=== PATIENT | male | born 1960 | race Caucasian/White ===

== ENCOUNTER 2019-08-26 14:08 | Outpatient (CLI) | payer BC, SELFPAY ==
--- NOTE | ~2019-08-26 | XR_ITS ---
EXAMINATION: XR hip RT 2V w AP pelvis DATE: 08/26/2019 14:35 INDICATION: Right hip pain TECHNIQUE: Anteroposterior view of the pelvis and anteroposterior, frog leg and cross-table lateral v iews of the right hip were obtained. Additional AP and lateral views of the more distal right femur o btained to completely include the orthopedic instrumentation. COMPARISON: None. FINDINGS: Old healed mid diaphyseal fracture of the right femur with antegrade intramedullary abdifatah fixation whic h is in essentially anatomic alignment. Transverse interlocking screw at the level of the lesser troc hanter. No lucency surrounding the fixation instrumentation to suggest loosening or infection. No acu te fracture. L4 laminectomy and combined instrumented anterior and posterior spinal fusion at L3-L4 a nd L4-L5 spanned by bilateral vertical rods and pedicle screw fixations as well as interbody fusion d evices at both levels. Bilateral hip osteoarthritis, moderate on the right and mild on the left. No r ight knee joint effusion. Multiple phleboliths in the pelvis. IMPRESSION: 1. Old healed internally fixed mid diaphyseal fracture of the right femur which is in near-anatomic a lignment. 2. Bilateral hip osteoarthritis, moderate on the right and mild on the left. 3. Minor instrumented anterior and posterior spinal fusion at L3-L5. Reviewed, dictated and finalized at location A. GHT CALLER IMPRESSION: 1. Old healed internally fixed mid diaphyseal fracture of the right femur which is in near-anatomic alignment. 2. Bilateral hip osteoarthritis, moderate on the right and mild on the left. 3. Minor instrumented anterior and posterior spinal fusion at L3-L5.
== END 2019-08-26 14:09 | disposition home or self-care (01) ==
LOC: ANHIMG 14:12
PROVIDERS: PCP Family Medicine; Visit Provider Physician Assistant Medical
DX: M25.551 Pain in right hip (principal); Z87.81 Personal history of (healed) traumatic fracture; M16.0 Bilateral primary osteoarthritis of hip; Z98.1 Arthrodesis status
CPT/HCPCS: 73521

== ENCOUNTER 2020-03-01 18:23 | Emergency (ER) | payer BC, SELFPAY ==
--- NOTE | ~2020-03-01 | CT_ITS ---
EXAMINATION: CT brain wo con EXAM DATE: 03/01/2020 19:12 INDICATION: Fall, possible seizure. Left eye pain and swelling. TECHNIQUE: Spiral CT of the head was performed without contrast. Axial, coronal and sagittal images were reviewed. The dose-length product (DLP) for this examination was 605.33 mGy-cm. The exposure w as tailored according to patient size, and iterative reconstruction (ASIR) was used as additional dos e reduction technique. There is no prior study for comparison. FINDINGS: Left inferior orbital wall fractures with large amount of intraconal and extraconal left or bital gas, left-sided exophthalmus. Left periorbital swelling. Please correlate with CT facial bone e xam same date. No pneumocephalus or calvarial fracture. There is no acute intraparenchymal hemorrhage. No evidence of intraparenchymal brain mass lesion. N o evidence of acute infarction. Mild atrophy and microangiopathy. There is no mass effect or midline shift. The ventricles are normal in size. There are no extra-axial collections. The orbits are unr emarkable. Soft tissue is unremarkable. The visualized sinuses and mastoid air cells are well aerat ed. IMPRESSION: 1. No acute intracranial findings. 2. Left infraorbital fractures, intraorbital gas causing exophthalmus. Reviewed, dictated and finalized at location A.
--- NOTE | ~2020-03-01 | XR_ITS ---
EXAMINATION: XR chest 2V EXAM DATE: 03/01/2020 19:18 INDICATION: Syncope. Left orbital fractures. TECHNIQUE: Frontal and lateral projections of the chest obtained and reviewed. Comparison is made to prior examination from 08/02/2011. FINDINGS: The lungs are clear. There are no pleural effusions. Cardiac silhouette is prominent but magnified on this AP technique. There is no pneumothorax suspected. The bones and soft tissues are unremarkable. IMPRESSION: No acute cardiopulmonary findings. Reviewed, dictated and finalized at location A.
--- NOTE | ~2020-03-01 | CT_ITS ---
EXAMINATION: CT facial & cervical spine wo EXAM DATE: 03/01/2020 19:12 INDICATION: Left eye pain. Fall. TECHNIQUE: Spiral CT of the facial bones was acquired in the axial plane. Coronal reformatted images were also reviewed. Spiral CT of the cervical spine was performed without contrast. Axial images we re reviewed. Coronal and sagittal reformatted images were also reviewed. The dose-length product (DL P) for this examination was 518.69 mGy-cm. The exposure was tailored according to patient size, and iterative reconstruction (ASIR) was used as additional dose reduction technique. There is no prior s tudy for comparison. FINDINGS: FACIAL CT: There are acute comminuted mildly inferiorly displaced left infraorbital wall fractures. A cute left medial orbital wall fracture with minimal medial displacement. There is large amount of gas within both intraconal and extraconal spaces of the left orbit, contributing to severe exophthalmus. The globe itself appears intact. The inferior rectus maintains intraorbital course. There is severe left periorbital swelling. There is hemorrhage filling the left maxillary sinus and also some hemorrh age in the ethmoid sinuses. Also acute nondisplaced left maxillary sinus posterior wall fracture with small amount of gas posteri or to the wall. The mastoid air cells are well aerated. There is mild mucoperiosteal disease. Nasal b ones, septum, zygomatic arches and mandible appear intact. CERVICAL CT: There is no evidence of acute cervical fracture. The odontoid process is intact. Pre-d ens space is normal. Prevertebral soft tissue is normal. There are no soft tissue abnormalities tigist ntified. There is no disc space widening or traumatic vertebral body subluxation suspected. There i s moderate disc disease at C6-7, overall mild to moderate cervical arthropathy. Up to moderate mid ce rvical neural foraminal stenosis. IMPRESSION: 1. Acute left orbital inferior orbital wall comminution, mild displacement. 2. Acute minimally displaced left lamina papyracea fracture. 3. Acute nondisplaced left maxillary sinus posterior wall fracture. 4. Large amount of left orbital pneumocephalus with severe exophthalmos. Periorbital swelling. 5. Cervical spondylosis without fracture. Reviewed, dictated and finalized at location A. IMPRESSION: 1. Acute left orbital inferior orbital wall comminution, mild displacement. 2. Acute minimally displaced left lamina papyracea fracture. 3. Acute nondisplaced left maxillary sinus posterior wall fracture. 4. Large amount of left orbital pneumocephalus with severe exophthalmos. Perio rbital swelling. 5. Cervical spondylosis without fracture.
[2020-03-01 18:30] VITALS: BP 143/90; PULSE 65; RESP 16; TEMP 37.2; O2SAT 98
--- NOTE | 2020-03-01 18:42 | ECG_ITS ---
Measurements Intervals [place] Rate: 58 P: 55 WV: 178 QRS: 28 QRSD: 133 T: 140 QT: 437 QTc: 432 Interpretive Statements SINUS BRADYCARDIA POSSIBLE LEFT ATRIAL ENLARGEMENT INTRAVENTRICULAR CONDUCTION DELAY CANNOT RULE OUT SEPTAL INFARCT, AGE INDETERMINATE ST-T WAVE ABNORMALITY IN HIGH LATERAL LEADS- CONSIDER ISCHEMIA ABNORMAL ECG Electronically Signed On 03-01-2020 20:21:11 CDT by Evangelist Padilla D.O.
--- NOTE | 2020-03-01 19:05 | ECG_ITS ---
Measurements Intervals [place] Rate: 60 P: 47 WI: 183 QRS: 21 QRSD: 126 T: 140 QT: 442 QTc: 442 Interpretive Statements SINUS RHYTHM POSSIBLE LEFT ATRIAL ENLARGEMENT LEFT VENTRICULAR HYPERTROPHY AND ST-T CHANGE CANNOT RULE OUT SEPTAL INFARCT, AGE INDETERMINATE ST-T WAVE ABNORMALITY IN HIGH LATERAL LEADS- CONSIDER ISCHEMIA ABNORMAL ECG Electronically Signed On 03-01-2020 20:22:50 CDT by Evangelist Padilla D.O.
[2020-03-01 19:06] LABS: Basophils Absolute Auto 0.1 K/mm3 (0.0-0.1); Basophils Percent Auto 1.1 % (0.2-1.2); Eosinophils Absolute Auto 0.3 K/mm3 (0-0.3); Eosinophils Percent Auto 3.3 % (0-4.4); Hemoglobin 13.8 g/dL (14.0-18.0); Immature Granulocyte Absolute 0.03 K/mm3 (0.00-0.031); Immature Granulocyte Percent A 0.3 % (0-0.5); Lymphocytes Absolute Auto 2.47 K/mm3 (0.9-3.2); Lymphocytes Percent Auto 24.9 % (18.3-44.2); Mean Corpuscular HGB Conc 34.5 g/dl (32-36); Mean Corpuscular Hemoglobin 36.3 pg (26-34); Mean Corpuscular Volume 105.3 fl (80-100); Mean Platelet Volume 10.9 fl (7.4-10.4); Monocytes Percent Auto 9.6 % (2.6-8.5); Neutrophils Percent Auto 60.8 % (45.5-73.1); Platelet Count Result 198 k/mm3 (150-375); Red Cell Distribution Width 12.4 % (11.5-14.5); White Blood Count 9.9 K/mm3 (4.5-10.0)
[2020-03-01 19:15] LABS: Prothrombin Time 12.5 Seconds (11.1-14.7)
[2020-03-01 19:22] LABS: Alanine Aminotransferase 49 U/L (4-50); Albumin Level 4.1 g/dL (3.5-5.1); Alkaline Phosphatase 66 U/L (38-126); Aspartate Amino Transferase 74 U/L (17-59); Bilirubin,Total 0.5 mg/dL (0.2-1.3); Blood Urea Nitrogen 13 mg/dL (9-20); Calcium 8.8 mg/dL (8.4-10.2); Carbon Dioxide 27 mmol/L (22-30); Chloride 100 mmol/L (98-107); Estimated CRCL calculation 104 ml/min; Estimated Glomerular Filt Rate > 60; Glucose 97 mg/dL (75-110); Potassium 3.9 mmol/L (3.4-5.0); Sodium 133 mmol/L (137-145)
[2020-03-01 19:33] LABS: Troponin I 0.026 ng/mL (0.000-0.034)
--- NOTE | 2020-03-01 19:37 | ED.FALL ---
HPI - Fall General Chief Complaint: Fall <TARA Singer Last Filed: 03/01/20 20:06> Stated Complaint: fall, possible seizure <TARA Singer Last Filed: 03/01/20 20:06> Time Seen by Provider: 03/01/20 18:29 <TARA Singer Last Filed: 03/01/20 20:06> Source: patient <TARA Singer Last Filed: 03/01/20 20:06> Mode of arrival: ambulatory <TARA Singer Last Filed: 03/01/20 20:06> Limitations: no limitations <TARA Singer Last Filed: 03/01/20 20:06> History of Present Illness HPI Narrative: This is a 60-year-old male that presents the emergency department for facial trauma. Reports he had been drinking beer today. Reports he felt like it went down the wrong pipe . Reports he had a coughing spell and then passed out. Reports he awoke to a friend finding him outside. Reports since he has had pain and swelling in the left eye. Also reports blurry vision in the left eye. Denies other injuries, chest pain, palpitations, shortness of breath, vomiting, weakness, or numbness. <TARA Singer Last Filed: 03/01/20 20:06> Related Data Home Medications: Home Medications Medication Instructions Recorded Confirmed Daily Multivitamin 03/01/20 aspirin [Adult Low Dose Aspirin] 81 mg PO DAILY 03/01/20 atorvastatin 03/01/20 carvedilol 03/01/20 citalopram mg 03/01/20 lisinopril 03/01/20 valacyclovir 03/01/20 <TARA Singer Last Filed: 03/01/20 20:06> Allergies/Adverse Reactions: Allergies Allergy/AdvReac Type Severity Reaction Status Date / Time amoxicillin Allergy Unknown Unknown Verified 03/01/20 19:22 lactose Allergy Unknown Unknown Verified 03/01/20 19:22 <TARA Singer Last Filed: 03/01/20 20:06> Review of Systems Review of Systems: Narrative: CONSTITUTIONAL: Denies fever EYES: Reports visual changes and redness CARDIOVASCULAR: Denies chest pain RESPIRATORY: Denies dyspnea. GASTROINTESTINAL: Denies vomiting MUSCULOSKELETAL: Denies back pain, joint pain, or myalgia. NEUROLOGIC: Denies headache, numbness, or weakness. <Brittany De La Cruz PA-C - Last Filed: 03/01/20 20:06> All systems reviewed & are unremarkable except as noted in HPI and below <Brittany De La Cruz PA-C - Last Filed: 03/01/20 20:06> [facility] Past Medical History Medical History: Medical History (Updated 03/01/20 @ 19:54 by Brittany De La Cruz PA-C) Alcohol use disorder Anxiety disorder, unspecified Bone spur (~2001) Chronic bilateral low back pain without sciatica Essential (primary) hypertension Fracture, femur (~1994) Hypertrophic cardiomyopathy Mixed hyperlipidemia Primary osteoarthritis of right hip <Brittany De La Cruz PA-C - Last Filed: 03/01/20 20:06> Surgical History Surgical History: Surgical History (Updated 11/09/19 @ 16:17 by Perla Pacheco) History of hernia repair (~2013) History of lumbar fusion (~2017) History of shoulder surgery (~2014) <Brittany De La Cruz PA-C - Last Filed: 03/01/20 20:06> Social History Social History: Social History Smoking status: Never smoker Alcohol intake: current <Brittany De La Cruz PA-C - Last Filed: 03/01/20 20:06> Exam Narrative: Exam Narrative: GENERAL: Well-appearing, well-nourished, and in no acute distress. HEAD: Normocephalic. EYES: Left pupil unreactive to light. Left eye with trouble with lateral gaze. Right pupil round and reactive to light with EOMs intact. Left eye 20/30, Right 20/25. Left eye with diffuse conjunctival injection. Left eyelids ecchymotic and swollen with left eye exophthalmos ENT: Nares clear, no rhinorrhea or epistaxis. Mucous membranes moist. Oropharynx without tonsillar hypertrophy exudate or other lesions. Bilateral TMs pearly patrick non-bulging NECK: Supple. No adenopathy or masses. No midline cervical spine tenderness CHEST: Clear to auscultat
--- NOTE | 2020-03-01 20:03 | PC.NURSE ---
1952 Called [facility] to transport patient. ETA 2100 1957 Callled [facility] to transport patient. declined - no ALS truck for transfers tonight. 1958 Called [facility] to transport patient. not available until 3-4 hours. 2000 Called [facility] to transport patient. declined - no trucks available.
[2020-03-01] MEDS: MORPHINE SULFATE 4 MG/ML INJ IV PUSH (20:08)
[2020-03-01] MEDS: ONDANSETRON INJ 4 MG/2 ML VIAL IV PUSH (20:08)
[2020-03-01 20:18] VITALS: BP 131/94; PULSE 65; RESP 20; O2SAT 94
[2020-03-01 20:28] LABS: Ethanol 113 mg/dL (<10)
--- NOTE | 2020-03-01 21:21 | PC.NURSE ---
2101 Called [facility] for update ETA. ETA 7 min. 2118 Called [facility] for update ETA. ETA 5 min.
[2020-03-01 21:29] VITALS: BP 125/79; PULSE 74; RESP 18; O2SAT 95
== END 2020-03-01 21:31 | disposition short-term general hospital (02) ==
PROVIDERS: Physician Assistant; Emergency Provider Emergency Medicine; PCP Family Medicine
DX: S02.32XA Fracture of orbital floor, left side, initial encounter for closed fracture (principal); S02.40DA Maxillary fracture, left side, initial encounter for closed fracture; S02.832A Fracture of medial orbital wall, left side, initial encounter for closed fracture; R55 Syncope and collapse; F41.9 Anxiety disorder, unspecified; I10 Essential (primary) hypertension; E78.2 Mixed hyperlipidemia; M16.11 Unilateral primary osteoarthritis, right hip; Z98.1 Arthrodesis status; W18.39XA Other fall on same level, initial encounter; M47.812 Spondylosis without myelopathy or radiculopathy, cervical region; I51.7 Cardiomegaly; R94.31 Abnormal electrocardiogram [ECG] [EKG]; R00.1 Bradycardia, unspecified
CPT/HCPCS: 36415; 70450; 70486; 71046; 72125; 80053; 80307; 84484; 85025; 85610; 85730; 93005; 96365; 96375; 99285; J0131; J2270; J2405

== ENCOUNTER 2021-12-25 00:49 | Day surgery (SDC) | payer BC, SELFPAY ==
[2021-12-15 11:56] VITALS: BMI 30.4
--- NOTE | 2021-12-25 10:30 | WPDANESEPPF ---
Anes - Initial Pre Proc Eval Procedure: Operation Date: 12/25/21 13:00 Proposed Procedures p Screening Colonoscopy - Darin Sanders MD Date/Time: 12/25/21 10:30 Surgeon: Darin Sanders MD Pre Op Diagnosis: neoplasm screening Patient Data Age: 61 Gender: M Height: 1.8 m Weight: 99 kg Allergies Allergy/AdvReac Type Severity Reaction Status Date / Time amoxicillin Allergy Unknown Unknown Verified 12/25/21 11:42 lactose Allergy Unknown Unknown Verified 12/25/21 11:42 Home Medications Medication Instructions Recorded Confirmed Type Daily Multivitamin See Rx Instructions .ROUTE .COMPLEX 03/01/20 12/15/21 History aspirin [Adult Low Dose Aspirin] 81 mg PO DAILY 03/01/20 12/15/21 History lisinopril 5 mg PO DAILY 03/01/20 12/15/21 History metoprolol succinate 50 mg 50 mg PO DAILY 06/03/20 12/15/21 History tablet,extended release 24 hr cyanocobalamin (vitamin B-12) 500 500 mcg PO DAILY 11/12/20 12/15/21 History mcg lozenges valacyclovir 500 mg tablet See Rx Instructions .ROUTE 11/23/21 12/15/21 Rx .COMPLEX #90 tablet atorvastatin 40 mg tablet 40 mg PO DAILY #90 tablet 11/25/21 12/15/21 Rx citalopram 40 mg tablet 40 mg PO DAILY #90 tablet 11/25/21 12/15/21 Rx Patient hx anesthesia problems: none Family hx anesthesia problems: none Results Review: All pre-operative results and documents have been reviewed as part of the pre-operative evaluation. [facility] Past Medical History Medical History (Updated 12/25/21 @ 10:34 by Warren Coronado MD) Alcohol use disorder Anxiety Anxiety disorder, unspecified BMI 30.0-30.9,adult Bone spur (~2001) Chronic bilateral low back pain without sciatica Essential (primary) hypertension Fracture, femur (~1994) Hip replacement planned Hx of myocardial infarction Hypertension Hypertrophic cardiomyopathy Mixed hyperlipidemia MARCIE on CPAP Primary osteoarthritis of right hip Surgical History Surgical History (Updated 12/25/21 @ 10:34 by Warren Coronado MD) History of hernia repair (~2013) History of lumbar fusion (~2017) History of shoulder surgery (~2014) S/P triple vessel bypass Family History Family History Father Mother No problems noted. Sibling Heart disease Other Family history of cardiovascular disease Social History Social History Smoking packs per day: 0.5 Smoking cigarettes per day: 10.0 Smoking status: Current every day smoker Tobacco type: cigarettes Second hand tobacco smoke exposure: No Alcohol intake: current Drinks per week: 43 Alcohol use details: beer Substance use: current Substance use type: former substance user Other substance usage details: indica Last use: daily Living arrangements: with family Additional occupation/education comments: GM Gender identity (if verbalized by the patient): Male Spiritual care concerns: No Anes - Eval Final PreProcedure Day of Procedure 12/25/21 10:30 Patient weight: obese Heart: regular rate and rhythm Lungs: clear to auscultation and normal air movement Airway: Mallampati scale class II Neurological: alert and oriented Last oral intake: >/= 8 hours ASA classification: IV Emergent: no Anesthetic plan: proceed Anesthesia type and monitoring: general GIVS Results Review: All pre-operative results and documents have been reviewed as part of the pre-operative evaluation. Informed Consent: The patient's anesthetic plan and its attendant risks and benefits were discussed with the patient/family/POA. Questions were solicited and answers provided to the satisfaction of the patient/family/POA.
[2021-12-25 11:43] VITALS: BP 127/74; PULSE 104; RESP 20; TEMP 36.1; O2SAT 95
--- NOTE | 2021-12-25 11:47 | WPDGICN ---
Assessment and Plan Assessment and plan (1) Colon cancer screening: Code(s): Z12.11 - Encounter for screening for malignant neoplasm of colon Status: Acute Assessment and Plan: Colonoscopy with possible biopsy or polypectomy or cautery or injection of substances. (2) MARCIE on CPAP: Code(s): G47.33 - Obstructive sleep apnea (adult) (pediatric); Z99.89 - Dependence on other enabling machines and devices Status: Acute Assessment and Plan: Anesthesia is aware GI Consult Note Consult date/time: 12/25/21 11:47 HPI: Charles Rose is a 61 year old male Referred for colon cancer screening. His last colonoscopy was 12 years ago. He denies any change in bowel habits or blood in his stools. He does not have any family history of colon cancer. Review of Systems Review of Systems: All systems reviewed & are unremarkable except as noted in HPI and below PMFSH Past Medical History Medical History Alcohol use disorder Anxiety Anxiety disorder, unspecified BMI 30.0-30.9,adult Bone spur (~2001) Chronic bilateral low back pain without sciatica Essential (primary) hypertension Fracture, femur (~1994) Hip replacement planned Hx of myocardial infarction Hypertension Hypertrophic cardiomyopathy Mixed hyperlipidemia MARCIE on CPAP Primary osteoarthritis of right hip Surgical History Surgical History History of hernia repair (~2013) History of lumbar fusion (~2017) History of shoulder surgery (~2014) S/P triple vessel bypass Family History Family History Father Mother No problems noted. Sibling Heart disease Other Family history of cardiovascular disease Social History Social History Smoking packs per day: 0.5 Smoking cigarettes per day: 10.0 Smoking status: Current every day smoker Tobacco type: cigarettes Second hand tobacco smoke exposure: No Alcohol intake: current Drinks per week: 43 Alcohol use details: beer Substance use: current Substance use type: former substance user Other substance usage details: indica Last use: daily Living arrangements: with family Additional occupation/education comments: GM Gender identity (if verbalized by the patient): Male Spiritual care concerns: No Meds Home Medications and Allergies Home Medications Medication Instructions Recorded Confirmed Type Daily Multivitamin See Rx Instructions .ROUTE .COMPLEX 03/01/20 12/15/21 History aspirin [Adult Low Dose Aspirin] 81 mg PO DAILY 03/01/20 12/15/21 History lisinopril 5 mg PO DAILY 03/01/20 12/15/21 History metoprolol succinate 50 mg 50 mg PO DAILY 06/03/20 12/15/21 History tablet,extended release 24 hr cyanocobalamin (vitamin B-12) 500 500 mcg PO DAILY 11/12/20 12/15/21 History mcg lozenges valacyclovir 500 mg tablet See Rx Instructions .ROUTE 11/23/21 12/15/21 Rx .COMPLEX #90 tablet atorvastatin 40 mg tablet 40 mg PO DAILY #90 tablet 11/25/21 12/15/21 Rx citalopram 40 mg tablet 40 mg PO DAILY #90 tablet 11/25/21 12/15/21 Rx Allergies Allergy/AdvReac Type Severity Reaction Status Date / Time amoxicillin Allergy Unknown Unknown Verified 12/25/21 11:42 lactose Allergy Unknown Unknown Verified 12/25/21 11:42 Vital Signs Vital Signs - 24 hr 12/25/21 11:43 Temperature 36.1 C L Pulse Rate 104 H Respiratory Rate 20 Blood Pressure 127/74 Pulse Oximetry 95 Exam Const: General: alert Nutritional Appearance: overweight Orientation/consciousness: patient oriented x3 Resp: Auscultation: clear to auscultation bilaterally Cardio: Rhythm: regular rhythm GI: GI Palp: Yes Soft to palpation and No Tenderness to palpation present (GI) Neuro: General: patient oriented x3
[2021-12-25] MEDS: LACTATED RINGERS 1,000 ML 150 ML IV CONT (11:56)
--- NOTE | 2021-12-25 12:08 | SUR.OPER ---
Vancomycin antibiotics infusing via pump prior to procedure start.
[2021-12-25 12:19] VITALS: BP 114/78; PULSE 84; RESP 23; O2SAT 94
[2021-12-25 12:29] VITALS: BP 122/79; PULSE 77; RESP 15; O2SAT 97
[2021-12-25 12:39] VITALS: BP 130/85; PULSE 76; RESP 16; O2SAT 97
[2021-12-25 12:49] VITALS: BP 136/86; PULSE 70; RESP 18; O2SAT 98
== END 2021-12-25 13:40 | disposition home or self-care (01) ==
PROVIDERS: PCP Family Medicine; Visit Provider Internal Medicine Gastroenterology
PROC: 0DJD8ZZ Inspection of Lower Intestinal Tract, Via Natural or Artificial Opening Endoscopic (ICD-10-PCS; CPT 45378; principal; 2021-12-25 13:00)
DX: Z12.11 Encounter for screening for malignant neoplasm of colon (principal); K64.8 Other hemorrhoids; K57.30 Diverticulosis of large intestine without perforation or abscess without bleeding; G47.33 Obstructive sleep apnea (adult) (pediatric); I10 Essential (primary) hypertension; I25.2 Old myocardial infarction; I42.2 Other hypertrophic cardiomyopathy; E78.2 Mixed hyperlipidemia; F41.9 Anxiety disorder, unspecified; Z98.1 Arthrodesis status; Z95.1 Presence of aortocoronary bypass graft; F17.210 Nicotine dependence, cigarettes, uncomplicated; F12.90 Cannabis use, unspecified, uncomplicated; Z79.82 Long term (current) use of aspirin; E66.9 Obesity, unspecified; Z68.29 Body mass index [BMI] 29.0-29.9, adult
CPT/HCPCS: 45378; J2704; J3370; J7120

== ENCOUNTER 2022-01-29 07:26 | Emergency (ER) | payer BC, SELFPAY ==
--- NOTE | ~2022-01-29 | XR_ITS ---
EXAMINATION: XR wrist LT min 3V DATE: 01/29/2022 08:12 INDICATION: Left wrist pain, initial encounter TECHNIQUE: Three views of the left wrist were obtained. COMPARISON: None available FINDINGS: There is an acute, traumatic, closed, comminuted intra-articular fracture of the distal rad ius. There are 30 degrees of dorsal angulation at the fracture site. Soft tissue swelling surrounds t he fracture. No additional fracture is identified. IMPRESSION: 1. Comminuted intra-articular fracture of the distal radius with dorsal angulation. Reviewed, dictated and finalized at location A. IMPRESSION: 1. Comminuted intra-articular fracture of the distal radius with dorsal angulat ion.
--- NOTE | ~2022-01-29 | XR_ITS ---
EXAMINATION: XR shoulder LT min 2V INDICATION: Left shoulder pain TECHNIQUE: Four views of the left shoulder are submitted. COMPARISON: None FINDINGS: Normal alignment. No fracture. Glenohumeral and acromioclavicular joint spaces are normal. Soft tissues are unremarkable. There are partially imaged changes of coronary artery bypass grafting. IMPRESSION: 1. No acute osseous abnormality. Reviewed, dictated and finalized at location A.
--- NOTE | ~2022-01-29 | CT_ITS ---
EXAMINATION: CT brain wo con INDICATION: Head injury COMPARISON: 03/01/2020 TECHNIQUE: Standard unenhanced head CT. The dose-length product (DLP) was 908.00 mGy-cm. The mA was a djusted according to patient size. Iterative reconstruction technique was employed. FINDINGS: There is no intracranial hemorrhage, acute infarction, or abnormal mass lesion. The ventric les are normal. There is no abnormal mass effect or midline shift. The patrick-white matter differentiat ion is normal. The basal cisterns are patent. The orbits are normal. There is mild mucosal thickening of the paranasal sinuses. IMPRESSION: 1. No acute intracranial abnormality. Reviewed, dictated and finalized at location A.
[2022-01-29 07:34] VITALS: BP 120/68; PULSE 74; RESP 16; TEMP 35.9; O2SAT 95
--- NOTE | 2022-01-29 07:43 | ED.GENADULT ---
HPI - General Adult General Chief complaint: Extremity Injury, Upper Stated complaint: left wrist injury Time Seen by Provider: 01/29/22 07:34 Source: patient Mode of arrival: ambulatory Limitations: no limitations History of Present Illness HPI narrative: 61-year-old male presenting the emergency department for evaluation of left wrist pain and left shoulder pain after having a fall last night. Patient states he lost his balance after opening a door and was holding a pair of shoes. Instead of grabbing the banister he ended up falling and injured his left shoulder and left wrist. Patient states he did strike his head, denies any head injury, denies any loss of consciousness. Patient states he is not on any blood thinners. Patient states immediately after the injury he was able to soak the left wrist and had normal range of motion. Patient states when he woke up this morning he had increased swelling and tenderness of left wrist. Patient does have increased pain with active range of motion of the left shoulder. Patient does have prior history of right hip arthroplasty performed at [place]. Related Data Home Medications Medication Instructions Recorded Confirmed Daily Multivitamin See Rx Instructions .ROUTE .COMPLEX 03/01/20 12/15/21 aspirin [Adult Low Dose Aspirin] 81 mg PO DAILY 03/01/20 12/15/21 lisinopril 5 mg PO DAILY 03/01/20 12/15/21 metoprolol succinate 50 mg 50 mg PO DAILY 06/03/20 12/15/21 tablet,extended release 24 hr cyanocobalamin (vitamin B-12) 500 500 mcg PO DAILY 11/12/20 12/15/21 mcg lozenges Allergies Allergy/AdvReac Type Severity Reaction Status Date / Time amoxicillin Allergy Unknown Unknown Verified 12/25/21 11:42 lactose Allergy Unknown Unknown Verified 12/25/21 11:42 Review of Systems Review of Systems: CONSTITUTIONAL: Denies fever, chills, or sweats. EYES: Denies visual changes, redness, or discharge. ENT: Denies rhinorrhea, congestion, sore throat, or otalgia. CARDIOVASCULAR: Denies chest pain, palpitations, or edema. RESPIRATORY: Denies cough or dyspnea. GASTROINTESTINAL: Denies abdominal pain, nausea, vomiting, or diarrhea. GENITOURINARY: Denies dysuria or hematuria. SKIN: Denies rash or itching. MUSCULOSKELETAL: See HPI NEUROLOGIC: Denies headache, numbness, or weakness. [facility] Past Medical History Medical History Alcohol use disorder Anxiety Anxiety disorder, unspecified BMI 30.0-30.9,adult Bone spur (~2001) Chronic bilateral low back pain without sciatica Essential (primary) hypertension Fracture, femur (~1994) Hip replacement planned Hx of myocardial infarction Hypertension Hypertrophic cardiomyopathy Mixed hyperlipidemia MARCIE on CPAP Primary osteoarthritis of right hip Surgical History Surgical History History of hernia repair (~2013) History of lumbar fusion (~2017) History of shoulder surgery (~2014) S/P triple vessel bypass Family History Family History Father Mother No problems noted. Sibling Heart disease Other Family history of cardiovascular disease Social History Social History Smoking packs per day: 0.5 Smoking cigarettes per day: 10.0 Smoking status: Current every day smoker Tobacco type: cigarettes Second hand tobacco smoke exposure: No Alcohol intake: current Drinks per week: 43 Alcohol use details: beer Substance use: current Substance use type: former substance user Other substance usage details: indica Last use: daily Additional occupation/education comments: GM Gender identity (if verbalized by the patient): Male Spiritual care concerns: No Exam Narrative: APPEARANCE: Well appearing, no pain, no distress, well-nourished. HEAD: normocephalic, atraumatic. EYES: PERRLA/EOMI, co
--- NOTE | 2022-01-29 07:59 | PC.NURSE ---
Patient to radiology
[2022-01-29] MEDS: HYDROcodone/acetaminophen (*CRX) 5-325 MG TABLET 1 TAB PO (09:45)
== END 2022-01-29 10:16 | disposition home or self-care (01) ==
PROVIDERS: Emergency Provider Emergency Medicine; PCP Family Medicine
DX: S52.572A Other intraarticular fracture of lower end of left radius, initial encounter for closed fracture (principal); S49.92XA Unspecified injury of left shoulder and upper arm, initial encounter; S09.90XA Unspecified injury of head, initial encounter; I10 Essential (primary) hypertension; I25.2 Old myocardial infarction; I42.2 Other hypertrophic cardiomyopathy; E78.2 Mixed hyperlipidemia; G47.33 Obstructive sleep apnea (adult) (pediatric); M16.11 Unilateral primary osteoarthritis, right hip; Z96.641 Presence of right artificial hip joint; Z79.82 Long term (current) use of aspirin; Z98.1 Arthrodesis status; F17.210 Nicotine dependence, cigarettes, uncomplicated; W18.39XA Other fall on same level, initial encounter
CPT/HCPCS: 29125; 70450; 73030; 73110; 99284; A4565; A9270

== ENCOUNTER 2022-02-03 00:57 | Day surgery (SDC) | payer BC, SELFPAY ==
--- NOTE | 2022-02-02 13:54 | PC.NURSE ---
Report to the Outpatient Waiting Room, entrance under the green pavilion located off [facility], at time _1200_ on date _02-03-22_. OR Time: __1400_. - You and your visitor will be asked a series of questions to screen for COVID 19 for your protection. - Only one visitor is allowed at this time. - The patient visitor is requested to leave or wait in car when not with patient. - A mask is required within the hospital. Patients may have clear liquids (water, carbonated beverages, clear teas, apple juice) until 3 hours prior to surgery with a maximum of 20 ounces. - No food from midnight until time of surgery Take the following medications with a SIP of water the morning of surgery: __Metoprolol, Citalopram, and Valacyclovir Medications to discontinue per physician Date to take last dose Please no make-up, nail [place], hairspray, perfume, deodorant, or body powder the day of surgery. No jewelry (including any body piercings) or valuables the day of surgery, leave them at home. Please take a shower or bath the night before, or the morning of, surgery with an antibacterial soap. Wear comfortable, loose fitting clothing. Children are encouraged to wear pajamas. - Jewelry must be removed prior to entering the operating room. Rings and piercings that are not removed may be cut off. - The hospital will not accept responsibility for valuables. - Please leave all valuables, including medications, at home the day of surgery. If you are going home after surgery, a licensed peg driver must drive you home. - NO public transportation without another adult. - We recommend that an adult stay with you for 24 hours following discharge. - We also recommend that you do not drive, make important decision, drink alcoholic beverages, or take any drugs that were not prescribed by your health care provider for at least 24 hours after your discharge time. Follow any additional instructions given to you from your surgeon. If you or anyone in your household have experienced Covid symptoms in the past week, please notify your surgeon or the nurse liaison at the phone number below for possible testing. Telephone instructions given to Patient and asked if any additional questions and then verbalized understanding. Patient advised to call surgeon office or pre surgery nurse liaison [phone] if any additional questions.
[2022-02-03] VITALS (9 sets, daily range): BP systolic 132–144; BP diastolic 83–89; PULSE 62–72; RESP 12–20; TEMP 36.4–36.5; O2SAT 93–98
--- NOTE | ~2022-02-03 | XR_ITS ---
EXAMINATION: XR surgery orthopedic DATE: 02/03/2022 14:21 INDICATION: ORIF left wrist fracture TECHNIQUE: 3 fluoroscopic images of the left wrist were obtained during procedure performed by Dr. Ferny can. Radiologist was not present for the imaging or procedure. The amount of fluoroscopy time used during this procedure was 10.8 minutes. COMPARISON: 02/11/2022 FINDINGS: Interval likely closed reduction of a comminuted intra-articular fracture of the distal left radius w hich is now fixed with 3 percutaneous fixation pins. There is approximately 10 degrees residual dorsa l tilt of the distal articular surface. The fracture is intra-articular with fracture planes extendin g to the ulnar and dorsal peripheral margins of the articular surface. There is approximately 2 to 3 mm residual lucent fracture gap between a small fragment along the dorsal rim and the remainder of th e articular surface which appears intact. No other fractures identified. Mild osteoarthritis at the t riscaphe joint. Surgical clip in the radial sided soft tissues at the wrist. IMPRESSION: 1. Decrease in the degree of dorsal tilt of the distal articular surface post closed reduction percut aneous pin fixation of a comminuted intra-articular fracture of the distal left radius. Reviewed, dictated and finalized at location A. IMPRESSION: 1. Decrease in the degree of dorsal tilt of the distal articular surface post c losed reduction percutaneous pin fixation of a comminuted intra-articular fract ure of the distal left radius.
--- NOTE | 2022-02-03 07:19 | WPDHPUPDATE1 ---
History and Physical Update Update Date/Time: 02/03/22 07:19 History and Physical has been reviewed, including an updated exam of the patient. There are NO changes in the patient's condition. Risks, benefits, and alternatives have been discussed and questions answered. Patient agrees to proceed with procedure.
--- NOTE | 2022-02-03 11:47 | ECG_ITS ---
Measurements Intervals [place] Rate: 66 P: 52 ND: 177 QRS: 55 QRSD: 141 T: 109 QT: 419 QTc: 441 Interpretive Statements SINUS RHYTHM LEFT BUNDLE BRANCH BLOCK ABNORMAL ECG Electronically Signed On 02-03-2022 12:46:51 CDT by Evangelist Padilla D.O.
[2022-02-03] MEDS: LACTATED RINGERS 1,000 ML 30 ML IV CONT (12:32)
[2022-02-03] MEDS: ACETAMINOPHEN 500 MG TABLET 1000 MG PO (12:33)
[2022-02-03] MEDS: KETOROLAC 15 MG/ML VIAL (*BKC) IV PUSH (12:34)
--- NOTE | 2022-02-03 12:39 | SUR.PREOP ---
INSTRUCTED BY Rola KRAFT TO LEAVE ARM SPLINT IN PLACE. NO HAIR REMOVAL OR SCRUB DONE.
--- NOTE | 2022-02-03 12:39 | WPDANESEPPF ---
Anes - Initial Pre Proc Eval Procedure: Operation Date: 02/03/22 14:00 Proposed Procedures p Open Reduction Internal Fixation Left Distal Radius - Cheng Johnson MD Date/Time: 02/03/22 12:39 Surgeon: Cheng Johnson MD Pre Op Diagnosis: Lt Distal Radius Fx Patient Data Age: 61 Gender: M Height: 1.8 m Weight: 97.7 kg Allergies Allergy/AdvReac Type Severity Reaction Status Date / Time lactose Allergy Mild Diarrhea Verified 02/03/22 12:22 amoxicillin AdvReac Mild Nausea Verified 02/03/22 12:22 Home Medications Medication Instructions Recorded Confirmed Type Daily Multivitamin See Rx Instructions .ROUTE .COMPLEX 03/01/20 02/03/22 History aspirin [Adult Low Dose Aspirin] 81 mg PO DAILY 03/01/20 02/03/22 History metoprolol succinate 50 mg 50 mg PO DAILY 06/03/20 02/03/22 History tablet,extended release 24 hr cyanocobalamin (vitamin B-12) 500 500 mcg PO DAILY 11/12/20 02/03/22 History mcg lozenges valacyclovir 500 mg tablet See Rx Instructions .ROUTE 11/23/21 02/03/22 Rx .COMPLEX #90 tablet citalopram 40 mg tablet 40 mg PO DAILY #90 tablet 11/25/21 02/03/22 Rx hydrocodone-acetaminophen 1 tablet PO Q8H PRN #14 tablet 01/30/22 02/03/22 Rx atorvastatin 40 mg PO HS 02/02/22 02/03/22 History ferrous sulfate 324 mg PO HS 02/02/22 02/03/22 History Patient hx anesthesia problems: none Family hx anesthesia problems: none Results Review: All pre-operative results and documents have been reviewed as part of the pre-operative evaluation. [facility] Past Medical History Medical History Alcohol use disorder Anxiety Anxiety disorder, unspecified BMI 30.0-30.9,adult Bone spur (~2001) Chronic bilateral low back pain without sciatica Essential (primary) hypertension Fracture, femur (~1994) Hip replacement planned Hx of myocardial infarction Hypertension Hypertrophic cardiomyopathy Mixed hyperlipidemia MARCIE on CPAP Primary osteoarthritis of right hip Surgical History Surgical History History of hernia repair (~2013) History of lumbar fusion (~2017) History of shoulder surgery (~2014) S/P triple vessel bypass Family History Family History Father Mother No problems noted. Sibling Heart disease Other Family history of cardiovascular disease Social History Social History Smoking packs per day: 1 Smoking cigarettes per day: 20.0 Years smoked: 25 Smoking pack-years: 25.00 Smoking status: Current every day smoker Tobacco type: cigarettes Second hand tobacco smoke exposure: No Alcohol intake: current Drinks per week: 45 Alcohol use details: beer Substance use: current Substance use type: marijuana Other substance usage details: Medical marijuana for back and hip pain. Uses daily about 4pm. Last use: daily Living arrangements: with family Additional occupation/education comments: GM Gender identity (if verbalized by the patient): Male Spiritual care concerns: No Anes - Eval Final PreProcedure Day of Procedure 02/03/22 12:39 Patient weight: obese Heart: regular rate and rhythm Lungs: clear to auscultation Airway: Mallampati scale class II Neurological: alert and oriented Last oral intake: >/= 8 hours ASA classification: IV Emergent: no Anesthetic plan: proceed Anesthesia type and monitoring: general LMA and standard monitoring Results Review: All pre-operative results and documents have been reviewed as part of the pre-operative evaluation. Informed Consent: The patient's anesthetic plan and its attendant risks and benefits were discussed with the patient/family/POA. Questions were solicited and answers provided to the satisfaction of the patient/family/POA.
[2022-02-03] MEDS: ceFAZolin 2 GM/D5W 50 ML 2 GM/50 ML BAG IVPB (13:06)
[2022-02-03] MEDS: BUPIVACAINE HCL 0.5% PF 30 ML VIAL INFILTRATE (13:54)
--- NOTE | 2022-02-03 14:56 | W.PM.PROC2 ---
Procedure Note - Detailed Date of Procedure 02/03/22 Pre-op Diagnosis Lt Distal Radius Fx Post-op Diagnosis Same Surgeon Cheng Johnson MD Anesthesia General Estimated Blood Loss 2 Pathology None sent Complications No immediate complications Condition Stable Disposition PACU
--- NOTE | 2022-02-03 15:00 | W.PM.PROC2 ---
Procedure Note - Detailed Date of Procedure 02/03/22 Pre-op Diagnosis Lt Distal Radius Fx Post-op Diagnosis Same Procedure Performed CLOSED REDUCTION PERCUTANEOUS PINNING LEFT DISTAL RADIUS FRACTURE Surgeon Cheng Johnson MD Anesthesia General Description of Procedure THE PATIENT WAS TAKEN TO THE OPERATING ROOM IN STABLE CONDITION, THEN GENERAL ANESTHESIA WAS INDUCED. THE LEFT UPPER EXTREMITY WAS EXAMINED. THERE WAS MASSIVE AMOUNTS OF SWELLING AND ECCHYMOSIS OVER THE VOLAR WRIST. IT WAS DECIDED THEN TO PREFORM A CLOSED REDUCTION AND PERCUTANEOUS PINNING OF THE FRACTURE. THE LEFT UPPER EXTREMITY WAS PREPPED AND DRAPED IN A STERILE FASHION. USING FIBROSCOPY, THE LEFT DISTAL RADIUS FRACTURE WAS REDUCED TO ANATOMIC POSITION. NEXT, THREE 0.62K WIRES WERE THEN PLACED BRIDGING THE FRACTURE FRAGMENTS. THE WRIST WAS TAKEN THROUGH A RANGE OF MOTION AND USING C-ARM XRAY, THE FRACTURE WAS IN GOOD REDUCTION AND STABLE THROUGH RANGE OF MOTION. THE PINS WERE CUT AT THE LEVEL OF THE SKIN. A STERILE DRESSING WAS PLACED, A SUGAR TONG SPLINT WAS PLACED AFTER THAT. THE PATIENT WAS SENT TO RECOVERY ROOM IN STABLE CONDITION. Estimated Blood Loss 2.0 Packing No Pathology None sent Complications No immediate complications Condition Stable Disposition PACU
[2022-02-03] MEDS: fentaNYL CITRATE INJ (*CRX) 100 MCG/2 ML VIAL 25 MCG IV PUSH ×4 (15:02→15:08)
[2022-02-03] MEDS: oxyCODONE HCL (*CRX) 5 MG TAB IR PO (15:52)
== END 2022-02-03 16:32 | disposition home or self-care (01) ==
PROVIDERS: PCP Family Medicine; Visit Provider Orthopaedic Surgery
PROC: (CPT 25575; principal; 2022-02-03 14:00)
DX: S52.572A Other intraarticular fracture of lower end of left radius, initial encounter for closed fracture (principal); W19.XXXA Unspecified fall, initial encounter; I10 Essential (primary) hypertension; E78.2 Mixed hyperlipidemia; I25.2 Old myocardial infarction; G47.33 Obstructive sleep apnea (adult) (pediatric); F41.9 Anxiety disorder, unspecified; I42.2 Other hypertrophic cardiomyopathy; Z98.1 Arthrodesis status; Z95.1 Presence of aortocoronary bypass graft; F17.210 Nicotine dependence, cigarettes, uncomplicated; F12.90 Cannabis use, unspecified, uncomplicated; M16.11 Unilateral primary osteoarthritis, right hip; M54.42 Lumbago with sciatica, left side; M54.41 Lumbago with sciatica, right side; G89.29 Other chronic pain; E66.9 Obesity, unspecified; Z68.29 Body mass index [BMI] 29.0-29.9, adult
CPT/HCPCS: 25606; 93005; A4565; A9270; C1713; J0690; J1100; J1885; J2250; J2405; J2704; J3010; J7120

== ENCOUNTER 2023-01-28 13:09 | Outpatient (CLI) | payer MEDICARE, SELFPAY ==
--- NOTE | ~2023-01-28 | CT_ITS ---
EXAMINATION:CT lung screening DATE: 01/28/2023 13:34 INDICATION: Tobacco use. Current smoker with 50 pack year history. TECHNIQUE: Computed tomography (CT) of the chest was performed without intravenous contrast. Automate d exposure control and iterative reconstruction technique were employed. The dose-length product (DLP ) was 200.14 mGy-cm. COMPARISON: None. FINDINGS: The lungs demonstrate mild atelectasis. No pleural effusion. The heart size is normal. Ther e are coronary artery calcifications. There are changes of coronary bypass grafting. There is diffuse hepatic steatosis. There are gallstones in the gallbladder, which is contracted. There is severe tho racic spondylosis. There are hemangiomas in T5 and T9 vertebral bodies. IMPRESSION: 1. Lung-RADS category 1: Negative. Continue annual screening with noncontrast low-dose chest CT in 12 months. Reviewed, dictated and finalized at location A. IMPRESSION: 1. Lung-RADS category 1: Negative. Continue annual screening with noncontrast l ow-dose chest CT in 12 months.
--- NOTE | 2023-01-28 16:18 | WPDPFTINT ---
PFT Procedure Performed PFT Procedure Performed Spirometry with Pre/Post Bronchodilator Plethysmography (Lung Vol) Diffusing Cap (DLCO) Flow Vol Loop PFT Interpretation This is a pulmonary function test with pre and post-bronchodilator spirometry, plethysmography and diffusing capacity. The test was performed and results interpreted in accordance with the 2019 and 2005 ATS/ERS Task Force guidelines respectively using the Global Lung Function Initiative-2012 reference equations. Patient demonstrated good effort and cooperation. Reproducibility criteria were met. The quality of the pre bronchodilator spirometry maneuver was Grade A and post bronchodilator spirometry maneuver was Grade A. Findings: Spirometry: The contour the inspiratory and expiratory flow tracing are normal. The pre bronchodilator FVC is 4.43 L, 94% predicted. The pre bronchodilator FEV1 is 3.15 L, 87% predicted. The pre bronchodilator FEV1: FVC ratio 71%. The post bronchodilator FVC is 4.26 L, representing a 4% decrease. The post bronchodilator FEV1 is 3.26 L, representing a 4% increase. The post bronchodilator FEV1: FVC ratio is 76%. Plethysmography: The total lung capacity is 7.01 L, 98% predicted. The functional residual capacity is 3.68 L, 98% predicted. The residual volume is 2.58 L, 111% predicted. Diffusing capacity: The diffusing capacity unadjusted for hemoglobin and carboxyhemoglobin is 20.2, 71% predicted. The diffusing capacity adjusted for alveolar volume is 3.53, 86% predicted. Impression: The spirometry is normal without evidence of an obstructive abnormality. There is no significant improvement after inhaling a single dose of albuterol. The lung volumes are normal. The diffusing capacity unadjusted for hemoglobin and carboxyhemoglobin is mildly decreased and normalizes when adjusted for alveolar volume. There are no prior studies for comparison
== END 2023-01-28 13:10 | disposition home or self-care (01) ==
PROVIDERS: PCP Family Medicine; Visit Provider Physician Assistant Medical
DX: Z12.2 Encounter for screening for malignant neoplasm of respiratory organs (principal); F17.210 Nicotine dependence, cigarettes, uncomplicated
CPT/HCPCS: 71271; 94060; 94726; 94729

== ENCOUNTER 2024-06-05 08:47 | Outpatient (CLI) | payer MEDICARE, SELFPAY ==
--- NOTE | ~2024-06-05 | CT_ITS ---
EXAMINATION:CT lung screening DATE: 06/05/2024 09:00 INDICATION: Personal history of nicotine dependence. 50 pack year history. TECHNIQUE: Computed tomography (CT) of the chest was performed without intravenous contrast. Automate d exposure control and iterative reconstruction technique were employed. The dose-length product (DLP ) was 192.42 mGy-cm. COMPARISON: Chest CT 01/28/2023 FINDINGS: There is mild atelectasis in left upper lobe. No pleural effusion. The heart size is normal . There are coronary artery calcifications. There are changes of coronary artery bypass grafting. No pericardial effusion. There is diffuse hepatic steatosis. There are gallstones in the gallbladder, wh ich is contracted. There is severe thoracic spondylosis. There are hemangiomas in T5 and T9 vertebral bodies. IMPRESSION: 1. Lung-RADS category 1: Negative. Continue annual screening with noncontrast low-dose chest CT in 12 months. Reviewed, dictated and finalized at location A. IMPRESSION: 1. Lung-RADS category 1: Negative. Continue annual screening with noncontrast l ow-dose chest CT in 12 months.
== END 2024-06-05 08:48 | disposition home or self-care (01) ==
LOC: GOSHIMG 08:48
PROVIDERS: PCP Family Medicine; Visit Provider Nurse Practitioner Family
DX: Z12.2 Encounter for screening for malignant neoplasm of respiratory organs (principal); Z87.891 Personal history of nicotine dependence
CPT/HCPCS: 71271

== ENCOUNTER 2024-07-30 10:02 | Outpatient (CLI) | payer MEDICARE, SELFPAY ==
--- NOTE | ~2024-07-30 | US_ITS ---
EXAMINATION: US arterial ankle brachial ind DATE: 07/30/2024 10:49 INDICATION: Peripheral vascular disease. TECHNIQUE: Segmental pressures and plethysmographic and Doppler waveforms of the brachial and lower e xtremity arteries were obtained. COMPARISON: None. FINDINGS: Right and left brachial artery pressures of 148 mm Hg and 136 mm Hg, respectively, are concordant (no rmal difference <= 30 mmHg). The right ankle-brachial index (PATSY) is 1.21 (normal >= 0.9-1.0). The right great toe-brachial index (TBI) is 0.69 (normal >= 0.65). Arterial Doppler waveforms are triphasic in posterior tibial artery a nd monophasic in dorsalis pedis. The left PATSY is 1.30. The left TBI is 0.70. Arterial Doppler waveforms are biphasic at the ankle. IMPRESSION: 1. No significant arterial occlusive disease. Reviewed, dictated and finalized at location A. [employer]
== END 2024-07-30 10:03 | disposition home or self-care (01) ==
PROVIDERS: PCP Family Medicine; Visit Provider Nurse Practitioner Family
DX: I73.9 Peripheral vascular disease, unspecified (principal)
CPT/HCPCS: 93922

== ENCOUNTER 2024-12-05 11:23 | Emergency (ER) | payer MEDICARE, SELFPAY ==
[2024-12-05] VITALS (12 sets, daily range): BP systolic 149–185; BP diastolic 80–93; PULSE 47–51; RESP 11–20; TEMP 36.6; O2SAT 95–98
--- NOTE | ~2024-12-05 | CT_ITS ---
EXAMINATION: CT abdomen pelvis w con DATE: 12/05/2024 13:15 INDICATION: Rectal bleeding. TECHNIQUE: Computed tomography (CT) of the abdomen and pelvis was performed with 100 mL Omnipaque 350 intravenous contrast. Automated exposure control and iterative reconstruction technique were employe d. The dose-length product was 965.22 mGy-cm. COMPARISON: Chest CT 06/05/2024 FINDINGS: The visualized portions of lung bases demonstrate mild atelectasis. No pleural effusion. Ca rdiomegaly is noted. No pericardial effusion. There is diffuse hepatic steatosis. There are gallstone s in the gallbladder, which is normal in size. The spleen, pancreas, adrenal glands, and right kidney are normal. There is a 5 mm cyst in left kidney. There is diverticulosis of the colon without eviden ce of diverticulitis. The appendix is normal. There are no dilated loops of bowel. There are no patho logically enlarged lymph nodes. There is no free intraperitoneal fluid. There is a total right hip ar throplasty. There are changes of anterior and posterior fusion procedures from L3 to L5. There is sev ere thoracic spondylosis and moderate lumbar spondylosis. IMPRESSION: 1. Diffuse hepatic steatosis. Reviewed, dictated and finalized at location B.
--- NOTE | 2024-12-05 11:43 | PC.NURSE ---
pt states he has a few normal poops and the third or forth one is explosive and sometimes dark and tarry and sometimes just brown
[2024-12-05 12:05] LABS: Basophils Absolute Auto 0.1 K/mm3 (0.0-0.1); Basophils Percent Auto 1.1 % (0.2-1.2); Eosinophils Absolute Auto 0.4 K/mm3 (0-0.3); Eosinophils Percent Auto 4.7 % (0-4.4); Hematocrit 40.8 % (42.0-52.0); Hemoglobin 13.9 g/dL (14.0-18.0); Immature Granulocyte Absolute 0.01 K/mm3 (0.00-0.031); Immature Granulocyte Percent A 0.1 % (0-0.5); Lymphocytes Absolute Auto 1.73 K/mm3 (0.9-3.2); Lymphocytes Percent Auto 22.8 % (18.3-44.2); Mean Corpuscular HGB Conc 34.1 g/dl (32-36); Mean Corpuscular Hemoglobin 35.5 pg (26-34); Mean Corpuscular Volume 104.3 fl (80-100); Mean Platelet Volume 10.7 fl (7.4-10.4); Monocytes Absolute Auto 0.6 K/mm3 (0.1-0.6); Monocytes Percent Auto 8.2 % (2.6-8.5); Neutrophils Absolute Auto 4.8 K/mm3 (1.3-6.7); Neutrophils Percent Auto 63.1 % (45.5-73.1); Platelet Count Result 172 k/mm3 (150-375); Red Blood Count 3.91 M/mm3 (4.6-6.20); Red Cell Distribution Width 12.6 % (11.5-14.5); White Blood Count 7.6 K/mm3 (4.5-10.0)
[2024-12-05 12:14] LABS: Prothrombin Time 13.6 Seconds (11.1-14.7)
[2024-12-05 12:15] LABS: Partial Thromboplastin Time 25.4 Seconds (22.3-36.8)
[2024-12-05 12:18] LABS: Alanine Aminotransferase 70 U/L (6-50); Albumin Level 4.4 g/dL (3.5-5.1); Alkaline Phosphatase 69 U/L (38-126); Anion Gap 10 mmol/L (4-12); Aspartate Amino Transferase 52 U/L (17-59); Bilirubin,Total 0.6 mg/dL (0.2-1.3); Blood Urea Nitrogen 16 mg/dL (9-20); Calcium 9.5 mg/dL (8.4-10.2); Carbon Dioxide 26 mmol/L (22-30); Chloride 106 mmol/L (98-107); Estimated CRCL calculation 87 ml/min; Estimated Glomerular Filt Rate > 60; Glucose 104 mg/dL (65-110); Lipase 43 U/L (23-300); Potassium 4.1 mmol/L (3.4-5.0); Sodium 142 mmol/L (137-145)
--- NOTE | 2024-12-05 12:57 | ED.ABDPAIN ---
HPI - Abdominal Pain General Chief Complaint: Abdominal Pain Stated Complaint: suspected gall bladder complications Time Seen by Provider: 12/05/24 12:02 History of Present Illness HPI narrative: 64-year-old male with a past medical history including triple bypass, hypertension, alcohol abuse with 8 beers per day. He has a history of diverticulosis and internal hemorrhoids on recent colonoscopy in 2021. Patient presents to the emergency department for evaluation of potential rectal bleeding. He has had various qualities to his stool including dark tarry stool, bright red stool, normal stool. Denies any consistency to his bowel movements. Denies any abdominal pain in lower region, no rectal pain or external hemorrhoids to his knowledge. He went to his primary care provider today for routine visit and was referred to the ED for evaluation. at bedside states that the GP was concerned about insurance issues and referrals and wants to get all the studies done at once in the ED. Patient himself is not any acute distress, states that he feels tired, does take iron supplements. Related Data Home Medications ?Medication ?Instructions ?Recorded ?Confirmed ?Last Taken ?Type aspirin 81 mg tablet,delayed 81 mg PO DAILY 03/01/20 12/05/24 Unknown History release (Adult Low Dose Aspirin) metoprolol succinate 50 mg 50 mg PO DAILY 06/03/20 12/05/24 Unknown History tablet,extended release 24 hr cyanocobalamin (vitamin B-12) 500 500 mcg PO DAILY 11/12/20 12/05/24 Unknown History mcg lozenges ferrous sulfate 324 mg (65 mg 324 mg PO HS 02/02/22 12/05/24 Unknown History iron) tablet,delayed release nizhwldh-lyy-exwny acid 0.4 1 tablet PO DAILY 01/05/23 12/05/24 Unknown History mg-lycopene 300 mcg-lutein 250 mcg tablet (Centrum Silver) rosuvastatin 40 mg tablet (Crestor) 40 mg PO DAILY 01/09/24 12/05/24 Unknown History fexofenadine 60 mg tablet (Chuyita 60 mg PO Q12H 05/24/24 12/05/24 Unknown History Allergy) Allergies Allergy/AdvReac Type Severity Reaction Status Date / Time lactose Allergy Mild Diarrhea Verified 12/05/24 11:25 amoxicillin AdvReac Mild Nausea Verified 12/05/24 11:25 Review of Systems Review of Systems: As reviewed above in HPI PMFSH Past Medical History Medical History Alcohol use disorder Low volume of ejaculated semen Otitis externa MARCIE on CPAP Hx of myocardial infarction Hypertension Hip replacement planned BMI 30.0-30.9,adult Hypokalemia Bone spur (~2001) Hypertrophic cardiomyopathy Primary osteoarthritis of right hip Anxiety disorder, unspecified Chronic bilateral low back pain without sciatica Essential (primary) hypertension Mixed hyperlipidemia Surgical History Surgical History Hx of elbow surgery Christian Bedolla- 2016 S/P triple vessel bypass History of lumbar fusion (~2017) History of shoulder surgery (~2014) History of hernia repair (~2013) Family History Family History Father Mother No problems noted. Sibling Heart disease Other Family history of cardiovascular disease Social History Social History Smoking packs per day: 1 Smoking cigarettes per day: 20.0 Years smoked: 25 Smoking pack-years: 25.00 Smoking status: Former smoker Tobacco type: cigarettes Second hand tobacco smoke exposure: No Alcohol intake: current Drinks per week: 45 Alcohol use details: beer Substance use: current Substance use type: marijuana Other substance usage details: Medical marijuana for back and hip pain. Uses daily about 4pm. 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 Mucous membranes moist. NECK: Supple. CHEST: [Clear to auscultation. No respiratory distress.] HEART: [Regular rate and rhythm]. No murmur heard. [Normal peripheral pulses.] ABDOMEN: Protuberant abdomen but nondistended, soft to palpation, [nontender], [No rigidity or guarding] RECTAL: No external hemorrhoids, no pain with digital rectal examination, no obvious internal hernias, no palpable deformity. Guaiac-positive stool. No right red blood per rectum EXTREMITIES: Normal range of motion. [No edema.] SKIN: Warm, dry, no rash. NEURO: [No focal deficits]. Alert and oriented [x3.] PSYCH: [Normal mood and affect.] Course Vital Signs Vital signs: Vital Signs Temperature 36.6 C 12/05/24 11:25 Pulse Rate 51 L 12/05/24 11:25 Respiratory Rate 14 12/05/24 11:25 Blood Pressure 152/80 H 12/05/24 11:25 Pulse Oximetry 97 12/05/24 11:25 Oxygen Delivery Room Air 12/05/24 11:25 Temperature 36.6 C 12/05/24 11:25 Pulse Rate 49 L 12/05/24 11:49 Respiratory Rate 18 12/05/24 11:49 Blood Pressure 149/83 H 12/05/24 11:49 Pulse Oximetry 95 12/05/24 11:49 Oxygen Delivery Room Air 12/05/24 11:25 MDM - Abdominal Pain MDM Narrative Medical decision making narrative: 64-year-old male with a past medical history including coronary disease, hypertension, alcohol abuse with 8 drinks per day. He has a history of diverticulosis and internal hemorrhoids, recent colonoscopy in 2021 showed diverticulosis, internal hemorrhoids, polyp but no cancers lesions according to the family. Patient self is not any acute distress and went to his primary care provider today and referred to the emergency department for evaluation. Patient otherwise appears well, has no tenderness on examination, overall benign exam, vital signs with some sinus bradycardia, no blood pressure concerns, no fever, hypoxia or tachypnea. Considerations presently are for diverticulosis bleed, diverticulitis, internal hemorrhoids, less likely active GI bleed given his hemodynamic stability and overall well appearance. No present suspicion for upper abdominal pathology or brisk upper GI bleed. Blood was obtained including CBC, CMP, PT, PTT, type and screen. A CT scan of the abdomen pelvis with contrast was obtained. EKG ordered. Patient was placed on criminal psychologist and pulse oximetry and frequent re-evaluated. Workup shows no leukocytosis, hemoglobin of 13.9 which is around his baseline and macrocytic likely combination of iron deficiency that he takes iron supplements for and his alcohol use. Normal platelet count. Normal coagulation panel. Normal electrolytes, normal renal and unremarkable hepatic function panel. Normal lipase. Urine with high specific gravity but no infection. Occult blood test positive. CT scan shows hepatic steatosis but no acute process or active bleed. Patient re-evaluated without any symptoms. I informed them findings and unremarkable workup here and recommendations for outpatient GI follow-up. Patient has a non active lower GI bleed likely secondary to his internal hemorrhoids versus diverticular, he is hemodynamically stable, has no pain, no significant anemia and can be safely discharged home at this time. Patient provided GI instructions and return precautions. Medical Records Attestation: I reviewed the patient's medical records. Lab Data Attestation: I reviewed the patient's lab results. 12/05/24 11:56 12/05/24 11:56 Labs: Lab Results 12/05/24 12/05/24 Range/Units 11:56 13:58 WBC 7.6 (4.5-10.0) K/mm3 RBC 3.91 L (4.6-6.20) M/mm3 Hgb 13.9 L (14.0-18.0) g/dL Hct 40.8 L (42.0-52.0) % MCV 104.3 H (80-100) fl MCH 35.5 H (26-34) pg MCHC 34.1 (32-36) g/dl RDW 12.6 (11.5-14.5) % Plt Count 172 (150-375) k/mm3 MPV 10.7 H (7.4-10.4) fl Immature Gran % (Auto) 0.1 (0-0.5) % Neut % (Auto) 63.1 (45.5-73.1) % Lymph % (Auto) 22.8 (18.3-44.2) % [place] % (Auto) 8.2 (2.6-8.5) % Eos % (Auto) 4.7 H (0-4.4) % Baso % (Auto) 1.1 (0.2-1.2) % Lymph # (Auto) 1.73 (0.9-3.2) K/mm3 [place] # (Auto) 0.6 (0.1-0.6) K/mm3 Eos # (Auto) 0.4 H (0-0.3) K/mm3 Baso # (Auto) 0.1 (0.0-0.1) K/mm3 Abs Immat Gran (auto) 0.01 (0.00-0.031) K/mm3 Absolute Neuts (auto) 4.8 (1.3-6.7) K/mm3 Absolute Nucleated RBC 0.000 (0.0-0.012) K/mm3 Nucleated RBC % 0.0 (0.0-0.2) % PT 13.6 (11.1-14.7) Seconds INR 1.0 APTT 25.4 (22.3-36.8) Seconds Sodium 142 (137-145) mmol/L Potassium 4.1 (3.4-5.0) mmol/L Chloride 106 (98-107) mmol/L Carbon Dioxide 26 (22-30) mmol/L Anion Gap 10 (4-12) mmol/L BUN 16 (9-20) mg/dL Creatinine 0.94 (0.7-1.3) mg/dL Estim Creat Clear Calc 87 ml/min Estimated GFR > 60 (59 - ) Glucose 104 (65-110) mg/dL Calcium 9.5 (8.4-10.2) mg/dL Total Bilirubin 0.6 (0.2-1.3) mg/dL AST 52 (17-59) U/L ALT 70 H (6-50) U/L Alkaline Phosphatase 69 (38-126) U/L Total Protein 7.0 (6.3-8.2) g/dL Albumin 4.4 (3.5-5.1) g/dL Lipase 43 (23-300) U/L Urine Color Yellow (Yellow) Urine Appearance Clear (Clear) Urine pH 7.5 (5.0-9.0) Ur Specific [place] 1.045 H (1.001-1.035) Urine Protein Negative (Negative) mg/dL Urine Glucose (UA) Negative (Negative) mg/dL Urine Ketones Negative (Negative) mg/dL Ur Blood (Man) Negative (Negative) Urine Nitrate Negative (Negative) Urine Bilirubin Negative (Negative) Urine Urobilinogen 0.2 (<2.0) mg/dL Leukocyte Esterase Rfl Negative (Negative) KRISTI/UL Blood Type A Positive Antibody Screen Negative Imaging Data Attestation: I personally reviewed and interpreted this imaging study as follows: My impression: Impressions Abdomen/Pelvis CT 12/05/24 13:31 IMPRESSION: 1. Diffuse hepatic steatosis. Radiologist's impression: ITS Impressions Abdomen/Pelvis CT 12/05/24 13:31 IMPRESSION: 1. Diffuse hepatic steatosis. ECG Data EKG #1: Attestation: I personally reviewed and interpreted this ECG as follows: ECG completion date: 12/05/24 ECG completion time: 13:21 Prior ECG tracings: not available for review Interpretation: Left bundle-branch block, rate of 49, sinus bradycardia, QTC 439, QRS 148. No ST segment elevations, depressions or Sgarbossa criteria med. Overall sinus bradycardia with left bundle-branch block. No previous EKG for comparison. Discharge Plan Discharge Clinical Impression: Lower gastrointestinal bleeding Patient Disposition: Home, Self-Care Condition: Stable Instructions: Antibiotic Form, Rectal Bleeding (ED), Colonoscopy (DC) Additional Instructions: Your CT scan and laboratory studies reassuring, you have macrocytosis of your red blood cells secondary to your alcohol abuse. Cut down on your alcoholic intake and follow-up with Gastroenterology on outpatient basis. Return with any new or worsening concerns such as developing abdominal pain, lightheadedness, syncope, chest pain, shortness a breath, profound bleeding that does not stop. Call your doctor for close outpatient follow-up. Patient Language: Spanish Prescriptions: No Action metoprolol succinate 50 mg tablet extended release 24 hr 50 mg PO DAILY Centrum Silver 0.4 mg-300 mcg- 250 mcg tablet 1 tablet PO DAILY cyanocobalamin (vitamin B-12) 500 mcg lozenge 500 mcg PO DAILY rosuvastatin [Crestor] 40 mg tablet 40 mg PO DAILY buspirone 7.5 mg tablet 7.5 mg PO BID PRN (Reason: anxiety) Qty: 180 0RF fexofenadine [Chuyita Allergy] 60 mg tablet 60 mg PO Q12H ferrous sulfate 324 mg (65 mg iron) Tablet,Delayed Release (Dr/Ec) 324 mg PO HS aspirin [Adult Low Dose Aspirin] 81 mg Tablet,Delayed Release (Dr/Ec) 81 mg PO DAILY tadalafil [Cialis] 5 mg tablet 5 mg PO DAILY Qty: 30 3RF citalopram 40 mg tablet 40 mg PO DAILY Qty: 90 3RF valacyclovir 500 mg tablet See Rx Instructions .ROUTE .COMPLEX Qty: 90 3RF Dose Instruction: TAKE 1 TABLET DAILY Rx Instructions: TAKE 1 TABLET DAILY tamsulosin 0.4 mg capsule See Rx Instructions .ROUTE .COMPLEX Qty: 90 3RF Dose Instruction: TAKE 1 CAPSULE BY MOUTH DAILY AT BEDTIME Rx Instructions: TAKE 1 CAPSULE BY MOUTH DAILY AT BEDTIME Follow-up/Referrals: Tommy,Darin Munoz MD [Non-Staff] - 1 Week (colonoscopy, GIB) Lamont Mcginnis MD [Physician] - 1 Week (colonoscopy, lower GIB) Rusty Tinoco MD [Primary Care Provider] - Time of Disposition: 14:38
[2024-12-05] MEDS: LACTATED RINGERS 1,000 ML 999 ML IV CONT (12:58)
--- NOTE | 2024-12-05 13:03 | ECG_ITS ---
Test Date: 2024-12-05 13:21:29 Measurements Intervals [place] Rate: 49 P: 58 ME: 199 QRS: 79 QRSD: 148 T: 68 QT: 483 QTc: 438 Interpretive Statements SINUS BRADYCARDIA LEFT BUNDLE BRANCH BLOCK [120+ ms QRS DURATION, 80+ ms Q/S IN V1/V2, 85+ ms R IN I/aVL/V5/V6] No previous ECG available for comparison Electronically Signed On 12-05-2024 13:53:28 CDT by Jin Stacy M.D.
--- OUTSIDE RECORDS SUMMARY | 2024-12-05 13:17 | XMS_ITS | Clinical Summary ---
Author Organization [facility] Address [address] [place] [address] Care Team Providers Care Webmethods Architect Name Role Phone Rusty Tinoco MD Primary Care Provider [phone] Source Comments [facility],non-owned Affiliates and Associated Physician Practices is amultiple site organization consisting of ambulatory clinics and hospital sitesin [place], [place], [place] and [place]. This disclosure is being madepursuant to the Care Everywhere program and may not contain all information available regarding this patient. Last updated 18.[facility] Allergies No known active allergies Medications * Be aware that medications may not be up to date on this document. Alwaysverify current medications with the patient. Medication Sig Dispensed Refills Start Date End Date Status Multiple Vitamins-Minerals (CENTRUM SILVER PO) Take 1 Tab by mouth once daily. Active Cyanocobalamin (VITAMIN B-12) 500 MCG tablet Take 500 mcg by mouth once daily. Active Pyridoxine HCl (GNP VITAMIN B-6) 100 MG TABS Take 1 Tab by mouth once daily. Active vitamin C (ASCORBIC ACID) 500 MG tablet Take 500 mg by mouth once daily. Active LISINOPRIL PO Take 5 mg by mouth once daily. Active Carvedilol (COREG PO) Take 3.125 mg by mouth once daily. Active aspirin 81 MG chew tablet Take 81 mg by mouth once daily. Active citalopram (CELEXA) 40 MG tablet Take 40 mg by mouth once daily. Active aspirin 81 MG chew tablet Take 1 Tab by mouth once daily. 0 04/09/2013 Active Social History Tobacco Use Types Packs/Day Years Used Date Smoking Tobacco: Former Cigarettes 1 25 0 02/17/1985 - 02/17/2010 Smokeless Tobacco: Never Alcohol Use Standard Drinks/Week Comments Yes 29.2 (1 standard drink = 0.6 oz pure alcohol) social Sex and Gender Information Value Date Recorded Sex Assigned at Not on file Gender Identity Not on file Sexual Orientation Not on file Last Filed Vital Signs Vital Sign Reading Time Taken Comments Blood Pressure 149/92 04/09/2013 2:46 PM CDT Pulse 72 04/09/2013 2:46 PM CDT Temperature 36.6 C (97.8 F) 04/09/2013 9:33 AM CDT Respiratory Rate 18 04/09/2013 2:46 PM CDT Oxygen Saturation 99% 04/09/2013 2:46 PM CDT Inhaled Oxygen Concentration - - Weight 90.7 kg (200 lb) 04/09/2013 9:33 AM CDT Height 180.3 cm (5' 11 ) 04/09/2013 9:33 AM CDT Body Mass Index 27.89 04/09/2013 9:33 AM CDT Plan of Treatment Health Maintenance Due Date Last Done Comments COLOGUARD (AGES 45-75) - COL ON CA SCREENING 1960 COLON MONITORING 1960 COLONOSCOPY - COLON CA SCREENING 1960 CT COLONOGRAPHY - COLON CA SCREENING 1960 Colorectal Cancer Screening 1960 FIT - COLON CA SCREENING 1960 FLEX SIG - COLON CA SCREENING 1960 LIPID TESTING 1960 HIV SCREENING 02/04/1975 HEPATITIS C SCREENING 01/31/1978 DTAP/TDAP/TD VACCINES (1 - Tdap) 02/04/1979 PNEUMOCOCCAL VACCINE 50+ (1 of 1 - PCV) 02/04/2010 ZOSTER VACCINE (1 of 2) 02/04/2010 COVID-19 VACCINE ( - 2023-2 5 season) 2024 INFLUENZA VACCINE (#1) 2024 DEPRESSION SCREENING 09/26/2024 Respiratory Syncytial Virus (RSV) Vaccine Pt: or over 60 yrs (1 - 1-dose 75+ series) 02/04/2035 HEPATITIS B VACCINE Aged Out No longe r eligible based on patient's age to complete this topic HIB VACCINE Aged Out No longer eligi ble based on patient's age to complete this topic HPV VACCINE Aged Out No longer eligi ble based on patient's age to complete this topic MENINGOCOCCAL (Group B) VACC INE SHARED DECISION-MAKING Aged Out No longer eligibl e based on patient's age to complete this topic MENINGOCOCCAL GROUPS A/C/Y/W VACCINE Aged Out No longer eligible b ased on patient's age to complete this topic PNEUMOCOCCAL VACCINE Aged Out No long er eligible based on patient's age to complete this topic Care Teams Webmethods Architect Relationship Specialty Start Date End Date Rusty Tinoco MD [address] [place] [address] PCP - General Family Medicine 04/09/13
--- OUTSIDE RECORDS SUMMARY | 2024-12-05 13:17 | XMS_ITS | CONTINUITY OF CARE DOCUMENT ---
Author Name chris perez Address Unknown Organization [facility] Address [address] [place] [address] Phone [phone] Care Team Providers Care Documentation Improvement Specialist Name Role Phone Torey Perdomo DO Unavailable GREG GARCIA, PARESH Razo Unavailable [phone] GREG GARCIA, PARESH Razo Unavailable [phone] PROBLEMS Condition Status Date Provider Notes Elevated blood pressure read ing without diagnosis of hypertension active Mateo Perdomo DO Claudication Intermittent active Pr jaida Perdomo DO CAD active Torey Perdomo DO Family Hx heart disease active Prema Perdomo DO Tobacco abuse active Torey Perdomo DO Claudication Intermittent completed 12/13 - Torey Perdomo DO Peptic ulcer active Torey Perdomo DO Dyspnea on exertion completed - Torey Perdomo DO Preop cardiovasc. examination active Torey Perdomo DO Hypercholesterolemia active Torey Perdomo DO PVD - unspecified active Torey Perdomo DO Cardiovascular screening completed - Torey Perdomo DO ENCOUNTERS Date Type Provider Location Encounter Diag nosis - In-person encounter Office Visit Torey Perdomo DO [facility] - In-person encounter [facility] - In-person encounter Office Visit [facility] Claudication IntermittentElevated blood pressure reading without diagnosis of hypertension - In-person encounter Office Visit [facility] Claudication IntermittentCAD - In-person encounter Office Visit [facility] Cardiovascular screeningDyspnea on exertion - In-person encounter Office Visit [facility] PVD - unspecifiedHypercholesterolemiaPreop cardiovasc. examinationPeptic ulcerTobacco abuseFamily Hx heart disease VITAL SIGNS Date Observation Value Provider Body Mass Index (Ratio) 20.22 kg/m2 Prema grullon Chace Perdomo blood pressure, diastolic 80 mm[Hg] Feli [facility] blood pressure, systolic 150 mm[Hg] Keyana [facility] blood pressure, cuff size regular [facility] blood pressure, diastolic 80 mm[Hg] [facility] blood pressure, systolic 150 mm[Hg] Mark gil [place] pulse rate 73 /min [facility] oxygen saturation, oximetry 99 % [facility] respiratory rate E&M 19 /min [facility] weight E&M 145 [lb_av] [facility] height E&M 71 [in_i] [facility] Body Mass Index (Ratio) 21.20 kg/m2 Prema star Chace Perdomo blood pressure, diastolic 88 mm[Hg] Feli [facility]kLog blood pressure, systolic 133 mm[Hg] Keyana kLog blood pressure, diastolic 88 mm[Hg] Katelynn reynoso Radha blood pressure, systolic 133 mm[Hg] Aidan helcarmen Radha oxygen saturation, oximetry 98 % Ifrah Radha pulse rate 85 /min Ifrah Radha respiratory rate E&M 20 /min Saige mullins [place] weight E&M 152 [lb_av] Ifrah [place] height E&M 71 [in_i] Ifrah Radha Body Mass Index (Ratio) 19.80 kg/m2 Prad [facility] Chace Perdomo DO blood pressure, diastolic 115 mm[Hg] Li nkLogic blood pressure, systolic 184 mm[Hg] Keyana [facility]Logic oxygen saturation, oximetry 98 % Chastity Chi blood pressure, diastolic 115 mm[Hg] Ch astity Chi blood pressure, systolic 184 mm[Hg] Floridalma stity Chi pulse rate 81 /min Chastity Chi respiratory rate E&M 16 /min Chastit y Chi weight E&M 142 [lb_av] Chastity Chi height E&M 71 [in_i] Chastity Chi Body Mass Index (Ratio) 23.43 kg/m2 [facility] Chace Perdomo DO blood pressure, diastolic 80 mm[Hg] Ma rsha O'John blood pressure, systolic 110 mm[Hg] Mar sha O'John oxygen saturation, oximetry 91 % Maryanne O'John respiratory rate E&M 16 /min Maryanne O'John pulse rate 68 /min Maryanne O'John weight E&M 168 [lb_av] Maryanne O'John height E&M 71 [in_i] Maryanne O'John Body Mass Index (Ratio) 24.27 kg/m2 [facility] Chace Perdomo DO blood pressure, diastolic 84 mm[Hg] Sisi Blackwell blood pressure, systolic 160 mm[Hg] Arleth Blackwell oxygen saturation, oximetry 98 % Lauren Blackwell respiratory rate E&M 18 /min Makenna Blackwell pulse rate 84 /min Lauren seth weight E&M 174 [lb_av] Lauren seth height E&M 71 [in_i] Lauren seth Body Mass Index (Ratio) 23.99 kg/m2 [facility] Chace Perdomo DO blood pressure, cuff size regular Cr renata Gonzales blood pressure, diastolic 80 mm[Hg] Cr renata Gonzales blood pressure, systolic 120 mm[Hg] Cry stal Christian oxygen saturation, oximetry 99 % Iliana Gonzales respiratory rate E&M 17 /min Iliana Gonzales pulse rate 69 /min Iliana razo blood pressure, resting No Lola nahid Gonzales height E&M 71 [in_i] Iliana razo weight E&M 172 [lb_av] Iliana razo ALLERGIES Allergy Name Onset Date Reaction Criticality Status HEPARIN Low Criticality active RESULTS Date Observation Value Provider Reference Range Interpretation Location 3 hemoglobin A1C, blood, as % of total hemoglobin 5.6 % [facility] 4.8-5.6 3 free thyroxine index 1.1 [facility] 1.2-4.9 Low 3 triiodothyronine resin uptake 28 % [facility] 24-39 3 thyroxine, serum, total 4.1 ug/dL [facility] 4.5-12.0 Low 3 thyroid stimulating hormone, serum 0.574 u[IU]/mL [facility] 0.450-4.500 3 lipoprotein, beta, serum, point, quantitative, calculated 134 mg/dL [facility] 0-99 High 3 HDL cholesterol, serum 73 mg/dL [facility] >39 3 triglyceride, serum, random 88 mg/dL [facility] 0-149 3 cholesterol, serum 222 mg/dL [facility] 100-199 High 3 basophil count, absolute 0.1 x10E3/uL [facility] 0.0-0.2 3 Eosinophil Absolute Count 0.1 X10E3/UL [facility] 0.0-0.4 3 monocyte count, blood, automated 0.6 X10E3/UL [facility] 0.1-0.9 3 lymphocyte count, blood, automated 1.0 X10E3/UL [facility] 0.7-3.1 3 Absolute Neutrophils 7.1 X10E3/UL [facility] 1.4-7.0 High 3 basophils as percent of blood leukocytes 1 % [facility] Not Estab. 3 eosinophils as percent of blood leukocytes 1 % [facility] Not Estab. 3 monocytes as percent of blood leukocytes 6 % [facility] Not Estab. 3 lymphocytes as percent of blood leukocytes 11 % [facility] Not Estab. 3 neutrophils as percent of blood leukocytes 81 % [facility] Not Estab. 3 platelet count 211 X10E3/UL [facility] 055-004 3895/07/1 3 red blood cell distribution width 13.0 % [facility] 11.6-15.4 3 mean corpuscular hemoglobin concentration, RBC 33.6 G/DL [facility] 31.5-35.7 3 mean corpuscular hemoglobin, RBC 34.5 pg [facility] 26.6-33.0 High 3 mean corpuscular volume, RBC 103 fL [facility] 79-97 High 3 hematocrit, blood 42.8 % [facility] 37.5-51.0 3 hemoglobin, blood 14.4 g/dL [facility] 13.0-17.7 3 erythrocyte (RBC) count 4.17 X10E6/UL [facility] 4.14-5.80 3 leukocyte count, blood 8.8 X10E3/UL [facility] 3.4-10.8 3 alanine aminotransferase (SGPT), serum 15 1/L [facility] 0-44 3 aspartate aminotransferase (SGOT), serum 19 1/L [facility] 0-40 3 alkaline phosphatase, serum 82 1/L [facility] 48-121 3 bilirubin, serum, total 0.2 mg/dL [facility] 0.0-1.2 3 albumin/globulin ratio, serum 2.0 [facility] 1.2-2.2 3 globulin, serum 2.4 [facility] 1.5-4.5 3 albumin, serum 4.8 g/dL [facility] 3.8-4.8 3 protein, total, serum 7.2 g/dL [facility] 6.0-8.5 3 calcium, serum 9.9 mg/dL [facility] 8.6-10.2 3 carbon dioxide, venous blood 19 mmol/L [facility] 20-29 Low 3 chloride, serum 106 mmol/L [facility] 96-106 3 potassium, serum 4.7 mmol/L [facility] 3.5-5.2 3 sodium, serum 141 mmol/L [facility] 291-681 4350/07/1 3 urea nitrogen/creatinine ratio, serum 13 [facility] 10-24 3 eGFR if 76 mL/min/{1 .73_m2} [facility] >59 3 eGFR if not 66 mL/min/{1 .73_m2} [facility] >59 3 creatinine, serum 1.19 mg/dL [facility] 0.76-1.27 3 urea nitrogen, blood 15 mg/dL [facility] 8-27 3 blood glucose, random 123 mg/dL [facility] 65-99 High 6 prothrombin time (patient) 9.9 s [facility] 9.1-12.0 6 international normalized ratio (INR) 0.9 [facility] 0.8-1.2 6 lipoprotein, beta, serum, point, quantitative, calculated 74 mg/dL [facility] 0-99 6 very low density lipoproteins 50 mg/dL [facility] 5-40 High 6 HDL cholesterol, serum 54 mg/dL [facility] >39 6 triglyceride, serum, random 248 mg/dL [facility] 0-149 High 6 cholesterol, serum 178 mg/dL [facility] 276-577 3149/04/1 6 calcium, serum 10.8 mg/dL [facility] 8.7-10.2 High 6 carbon dioxide, venous blood 23 mmol/L [facility] 20-29 6 chloride, serum 103 mmol/L [facility] 96-106 6 potassium, serum 5.1 mmol/L [facility] 3.5-5.2 6 sodium, serum 141 mmol/L [facility] 193-853 8836/04/1 6 urea nitrogen/creatinine ratio, serum 16 [facility] 9-20 6 eGFR if 72 mL/min/{1 .73_m2} [facility] >59 6 eGFR if not 62 mL/min/{1 .73_m2} [facility] >59 6 creatinine, serum 1.26 mg/dL [facility] 0.76-1.27 6 urea nitrogen, blood 20 mg/dL [facility] 6-24 6 blood glucose, random 100 mg/dL [facility] 65-99 High 6 basophil count, absolute 0.1 x10E3/uL [facility] 0.0-0.2 6 Eosinophil Absolute Count 0.2 X10E3/UL [facility] 0.0-0.4 6 monocyte count, blood, automated 0.8 X10E3/UL [facility] 0.1-0.9 6 lymphocyte count, blood, automated 2.6 X10E3/UL [facility] 0.7-3.1 6 Absolute Neutrophils 6.1 X10E3/UL [facility] 1.4-7.0 6 basophils as percent of blood leukocytes 1 % [facility] Not Estab. 6 eosinophils as percent of blood leukocytes 2 % [facility] Not Estab. 6 monocytes as percent of blood leukocytes 8 % [facility] Not Estab. 6 lymphocytes as percent of blood leukocytes 27 % [facility] Not Estab. 6 neutrophils as percent of blood leukocytes 62 % [facility] Not Estab. 6 platelet count 267 X10E3/UL [facility] 363-398 7843/04/1 6 red blood cell distribution width 18.6 % [facility] 12.3-15.4 High 6 mean corpuscular hemoglobin concentration, RBC 32.5 G/DL [facility] 31.5-35.7 6 mean corpuscular hemoglobin, RBC 30.9 pg [facility] 26.6-33.0 6 mean corpuscular volume, RBC 95 fL [facility] 79-97 6 hematocrit, blood 42.5 % [facility] 37.5-51.0 6 hemoglobin, blood 13.8 g/dL [facility] 13.0-17.7 6 erythrocyte (RBC) count 4.47 X10E6/UL [facility] 4.14-5.80 6 leukocyte count, blood 9.8 X10E3/UL [facility] 3.4-10.8 HISTORY OF MEDICATION USE Medication Status Instructions Dates Provider Indications Com ments atorvastatin 40 mg tablet active TAKE 1 TABLET BY MOUTH EVERY DAY AT BEDTIME FOR CHOLESTEROL Ifrah Martinez atorvastatin 40 mg tablet completed TAKE 1 TABLET BY MOUTH AT BEDTIME FOR CHOLESTEROL - Ifrah Martinez Xarelto 2.5 mg tablet completed Take 1 tablet by mouth twice a day - Torey Perdomo DO Aspirin Childrens 81 mg tablet,chewable active Take 1 tablet by mouth once a day Torey Perdomo DO amlodipine 5 mg tablet active TAKE 1 TABLET BY MOUTH EVERY DAY Fritz clopidogrel 75 mg tablet completed TAKE 1 TABLET BY MOUTH EVERY DAY - Katelin Meza amlodipine 5 mg tablet completed Take 1 tablet by mouth once a day - Torey Perdomo DO pantoprazole 40 mg tablet,delayed release (DR/EC) completed Take 1 tablet by mouth TAKE 1 TABLET BY MOUTH DAILY - Mirnaana laura Geiger clopidogrel 75 mg tablet completed Take 1 tablet by mouth once a day Take 1 tablet by mouth once daily - Jay Perez RN atorvastatin 40 mg tablet completed 1 every night - Torey Perdomo DO Pepcid AC 10 mg tablet active 1 tablet once a day [facility] TYLENOL EXTRA STRENGTH 500 MG TABS active 2 tablet four times a day [facility] PRILOSEC OTC 20 MG ORAL TABLET DELAYED RELEASE completed one tab once daily - Floridalmastity Chi PLAVIX 75 MG ORAL TABLET completed Take one tab daily - [facility] ZANTAC 150 MAXIMUM STRENGTH TABLET completed take one tablet by mouth once daily - Maryanne O'John SENOKOT S TABLET completed take one tablet by mouth once daily - [facility] GABAPENTIN 300 MG ORAL CAPSULE completed take one capsule by mouth three times daily - Floridalmastity Chi #90, 30 days supply, Filled 12/01/2018 ATORVASTATIN CALCIUM 40 MG ORAL TABLET completed take one tablet by mouth once daily - Floridalmastity Chi #30, 30 days supply, Filled 12/01/2018 CELECOXIB 200 MG ORAL CAPSULE completed take one capsule by mouth once daily - Leonora Mireles #30, 30 days supply, Filled 12/01/2018 SOCIAL HISTORY Date Observation Value Provider smoking/tobacco cess ation, patient education and counseling yes Irais Brush number of years as a smoker 46 a Irais Caballeroby smoking history, tot al pack/day 1 Irais Brush cigarette use yes Irais Brush smoking status Current every da y smoker Irais Brush smoking/tobacco cess ation, patient education and counseling yes Ifrah [place] number of years as a smoker 46 a Ifrah Radha smoking history, tot al pack/day 1 Ifrah Radha cigarette use yes Ifrah Store y smoking status Current every da y smoker Ifrah Radha smoking/tobacco cess ation, patient education and counseling yes Leonora Mireles number of years as a smoker 46 a Leonora Mireles smoking history, tot al pack/day 1 Leonora Chi cigarette use yes Floridalmastity Chi smoking status Current every da y smoker Leonora Fernandezue smoking/tobacco cess ation, patient education and counseling yes Lauren Blackwell number of years as a smoker 46 a Lauren Saavedraenson smoking history, tot al pack/day 1 Lauren Blackwell cigarette use yes Lauren Saavedra on smoking status Current every da y smoker Lauren Blackwell smoking/tobacco cess ation, patient education and counseling yes Torey Perdomo DO number of years as a smoker 46 a Iliana Gonzales smoking history, tot al pack/day 1 Iliana Gonzales cigarette use yes Iliana Roth ms smoking status Current every da y smoker Iliana Gonzales FAMILY HISTORY Family Member Condition Father Family History of Co ronary Artery Disease: INSURANCE PROVIDERS Payer name Policy type / Coverage type Frieda red democrat ID [employer] CHOICE POS II [employer] insurance company [id number] ADVANCE DIRECTIVES Name Date DISCUSSED - NO DECISION MADE TREATMENT PLAN Date Name Performer [id number],C, C oronary ca score 31 (Cx) S tress test 12/19/18 negative for ischemia m ed rx r esume statin Torey Perdomo DO [id number],C, s tarted amlodipine 5 Torey Perdomo DO [id number],C, L DL 74 HDL 54 in 01/12 Cholesterol, Total [H] 222 mg/dL 100-199 Triglycerides 88 mg/dL 0-149 HDL Cholesterol 73 mg/dL >39 ! VLDL Cholesterol Ford 15 mg/dL 5-40 LDL Chol Calc ([facility]) [H] 134 mg/dL 0-99 r esumed atorva His updated medication list for this problem includes: Atorvastatin 40 Mg Tablet (Atorvastatin) ..... 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 c urrently on eliquis will change to low dose xarelto with aspirin in a month. Torey Perdomo DO [id number],C,s tart amlodipine 5 Torey Perdomo DO [id number],C, s top nsaids u se tylenol Torey Perdomo [id number],C, l eft iliac stented 03/14 a bi post suggests tie buyer stenosis right in c onfirmed iliac occlusion aif s tented/fixed 05/16 s top plavix after a month. c urrently on eliquis will change to low dose xarelto with aspirin in a month. Torey Perdomo [id number],C, L DL 74 HDL 54 in 01/12 Cholesterol, Total [H] 222 mg/dL 100-199 Triglycerides 88 mg/dL 0-149 HDL Cholesterol 73 mg/dL >39 ! VLDL Cholesterol Ford 15 mg/dL 5-40 LDL Chol Calc ([facility]) [H] 134 mg/dL 0-99 r esumed atorva His updated medication list for this problem includes: Atorvastatin 40 Mg Tablet (Atorvastatin) ..... 1 every night Torey Perdomo [id number],C, C oronary ca score 31 (Cx) S tress test 12/19/18 negative for ischemia m ed rx r esume statin Torey Perdomo [id number],C, l eft iliac stented 03/14 zelda post suggests tie buyer stenosis right in 19 m ore claudication, no wounds or ulcers. has pain and a palpable 'lump' right groin will u/s first then plan angio Torey Perdomo [id number],C,n eeds to check at home and monitor. Torey Perdomo [id number],C,a bi n eeds aif Torey Perdomo [id number],C, L DL 74 HDL 54 in 01/12 resume atorva Torey Perdomo [id number],C,C oronary ca score 31 (Cx) S tress test 12/19/18 negative for ischemia m ed rx o ff plavix currently r esume statin Torey Perdomo DO [id number],C, l eft iliac stented 03/14 d apt a bi post suggests tie buyer stenosis right in 19 h as pain and a palpable 'lump' right groin will u/s first then plan angio Torey Perdomo DO Cardiology: C oronary ca score 31 (Cx) S tress test 12/19/18 negative for ischemia m ed rx r esume statin Torey Perdomo DO Cardiology: s tarted amlodipine 5 Torey Perdomo DO Cardiology: L DL 74 HDL 54 in 01/12 Cholesterol, Total [H] 222 mg/dL 100-199 Triglycerides 88 mg/dL 0-149 HDL Cholesterol 73 mg/dL >39 ! VLDL Cholesterol Ford 15 mg/dL 5-40 LDL Chol Calc ([facility]) [H] 134 mg/dL 0-99 r esumed atorva His updated medication list for this problem includes: Atorvastatin 40 Mg Tablet (Atorvastatin) ..... 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 c urrently on eliquis will change to low dose xarelto with aspirin in a month. Otreyjavier Perdomo DO Cardiology need fin: start amlodipine 5 Torey Perdomo DO Cardiology need fin: s top nsaids u se tylenol Torey Perdomo DO Cardiology need fin: l eft iliac stented 03/14 a bi post suggests tie buyer stenosis right in 19 c onfirmed iliac occlusion aif s tented/fixed 05/16 s top plavix after a month. c urrently on eliquis will change to low dose xarelto with aspirin in a month. Torey Chace Perdomo DO Cardiology need fin: L DL 74 HDL 54 in 01/12 Cholesterol, Total [H] 222 mg/dL 100-199 Triglycerides 88 mg/dL 0-149 HDL Cholesterol 73 mg/dL >39 ! VLDL Cholesterol Ford 15 mg/dL 5-40 LDL Chol Calc ([facility]) [H] 134 mg/dL 0-99 r esumed atorva His updated medication list for this problem includes: Atorvastatin 40 Mg Tablet (Atorvastatin) ..... 1 every night Torey Perdomo DO Cardiology need fin: C oronary ca score 31 (Cx) S tress test 12/19/18 negative for ischemia m ed rx r esume statin Torey Perdomo DO Cardiology: l eft iliac stented 03/14 zelda post suggests tie buyer stenosis right in 19 m ore claudication, no wounds or ulcers. has pain and a palpable 'lump' right groin will u/s first then plan angio Torey Chace Perdomo DO Cardiology:needs to check at [facility] e and monitor. Torey Chace Perdomo DO Cardiology:zelda n eeds aif Torey Perdomo DO Cardiology: L DL 74 HDL 54 in 01/12 resume atorva Torey Perdomo DO Cardiology:Coronary ca score 31 (Cx) S tress test 12/19/18 negative for ischemia m ed rx o ff plavix currently r esume statin Torey Perdomo DO Cardiology: l eft iliac stented 03/14 d apt a bi post suggests tie buyer stenosis right in 19 h as pain and a palpable 'lump' right groin will u/s first then plan angio Torey Chace Perdomo DO Cardiology: n eeds back sg c ardiac risk assesment shows reassuring tests/acceptable risk Torey Perdomo DO Cardiology:left agusto c stented 03/14 d apt a bi 3-4 mo post d apt until then at least but ok to hold dapt for back sg at 6 weeks post. Torey Perdomo DO Cardiology:LDL 74 HD L 54 in 01/12 His updated medication list for this problem includes: Atorvastatin Calcium 40 Mg Oral Tablet (Atorvastatin calcium) ..... Take one tablet by mouth once daily Torey Perdomo DO Cardiology: s top nsaids u se tylenol Torey Perdomo DO Cardiology:needs nelly k sg c ardiac risk assesment shows reassuring tests/acceptable risk Torey Perdomo DO Cardiology:abnormal zelda l imiting left claudication h as abn zelda suggests iliac occlusive dz Torey Perdomo DO Cardiology:abnormal zelda l imiting left claudication h as abn zelda suggests iliac occlusive dz Torey Perdomo DO Cardiology:get labs pcp Torey Perdomo DO Cardiology:stop nsai ds u se tylenol Torey Perdomo DO Cardiology:cardiac r isk assesment needed e cho s tress test c acs Torey Perdomo DO Cardiology:cardiac risk assesmen t needed Torey Perdomo Date Name Arterial Duplex Bi-L ower EX COVID19 High Affinit y Antibodies (LC) LIPID PANEL TSH, free T4, total T3 HEMOGLOBIN A1c CBC (INCLUDES DIFF/P LT) COMPREHENSIVE METABO LIC PANEL, W/EGFR AIF Diagnostic - [facility] V Arterial Duplex Bi-L ower EX PROTHROMBIN TIME WIT H INR LIPID PANEL CBC (INCLUDES DIFF/P LT) BASIC METABOLIC PANE L W/EGFR AIF Diagnostic - [facility] V X-Ray, Chest - Routi ne Arterial Duplex Bi-L ower EX CT, Coronary Calcium Score Stress Exercise Card iolite Complete Echo HISTORY OF PROCEDURES Procedure Date Procedure Name Provider Procedure Notes S tatus EKG Torey Perdomo DO completed EKG Toreygenaro Perdomo DO completed EKG Toreygenaro Perdomo DO completed EKG Torey Perdomo DO completed FVC / MVV with bronchodilator - 40729 Torey Perdomo DO completed BLOOD COUNT HEMOGLOBIN Toreygenaro Perdomo DO completed FRC - 55150 Torey Perdomo DO completed SpO2 w/o 6min walk/titration Torey Perdomo DO completed DLCO - 32074 Torey Perdomo DO completed EKG Toreygenaro Perdomo DO completed Stress EKG Dm Olmstead MD completed Cardiolite, 2 units Brandon Avendaño MD completed SPECT Images Brandon Avendaño MD compl eted CT- Coronary CA score Torey Perdomo DO completed EKG Torey Perdomo DO completed
--- OUTSIDE RECORDS SUMMARY | 2024-12-05 13:17 | XMS_ITS | Patient Health Summary ---
Author Organization [facility] Address [address] [place] [address] Care Team Providers Care Paper Mill Superintendent Name Role Phone Rusty Tinoco MD Primary Care Provider [phone] Note from [facility],non-owned Affiliates and Associated Physician Practices is amultiple site organization consisting of ambulatory clinics and hospital sitesin [place], [place], [place] and [place]. This disclosure is being madepursuant to the Care Everywhere program and may not contain all information available regarding this patient. Last updated 18.[facility] Allergies No known active allergies Medications * Be aware that medications may not be up to date on this document. Alwaysverify current medications with the patient. * Multiple Vitamins-Minerals (CENTRUM SILVER PO) Take 1 Tab by mouth once daily. * Cyanocobalamin (VITAMIN B-12) 500 MCG tablet Take 500 mcg by mouth once daily. * Pyridoxine HCl (GNP VITAMIN B-6) 100 MG TABS Take 1 Tab by mouth once daily. * vitamin C (ASCORBIC ACID) 500 MG tablet Take 500 mg by mouth once daily. * LISINOPRIL PO Take 5 mg by mouth once daily. * Carvedilol (COREG PO) Take 3.125 mg by mouth once daily. * aspirin 81 MG chew tablet Take 81 mg by mouth once daily. * citalopram (CELEXA) 40 MG tablet Take 40 mg by mouth once daily. * aspirin 81 MG chew tablet(Started 04/09/2013) Take 1 Tab by mouth once daily. Social History Tobacco Use Types Packs/Day Years [...] Mass Index 27.89 04/09/2013 9:33 AM CDT Procedures * CARDIAC EKG ORDER(Performed 04/10/2013) * CARDIAC RHYTHM STRIP ORDER(Performed 04/10/2013) * TROPONIN I(Performed 04/09/2013) * XR CHEST 2VW(Performed 04/09/2013) Performed for Chest Pain * MAGNESIUM BLOOD(Performed 04/09/2013) * TROPONIN I(Performed 04/09/2013) * PT PTT PANEL(Performed 04/09/2013) * COMPREHENSIVE METABOLIC PANEL(Performed 04/09/2013) * CBC W AUTO DIFFERENTIAL(Performed 04/09/2013) * EKG 12-LEAD(Performed 04/09/2013) Performed for Chest Pain * CARDIAC RHYTHM STRIP ORDER(Performed 07/12/2011) * TROPONIN I(Performed 07/08/2011) * COMPREHENSIVE METABOLIC PANEL(Performed 07/08/2011) * CBC W AUTO DIFFERENTIAL(Performed 07/08/2011) * EKG 12-LEAD(Performed 07/08/2011) Performed for Near syncope Results * CARDIAC RHYTHM STRIP ORDER (04/10/2013 8:13 PM CDT) Only the most recent of2 resultswithin the time period is included. Narrative 04/10/2013 8:13 PM CDT Procedure Note Document, Scanned - 04/10/2013 8:13 PM CDT Scanned Document CARDIAC SERVICES ORD ERABLES * CARDIAC EKG ORDER (04/10/2013 8:13 PM CDT) Narrative 04/10/2013 8:13 PM CDT Procedure Note Document, Scanned - 04/10/2013 8:13 PM CDT Scanned Document CARDIAC SERVICES ORD ERABLES * TROPONIN I (04/09/2013 1:48 PM CDT) Only the most recent of3 resultswithin the time period is included. Troponin I <0.015 0.000 - 0.049 ng/mL 04/09/2013 2:[address] [facility] Blood specimen (specimen) BLOOD SPECIMEN / Unknown Lab Venipuncture / Unknown 04/09/2013 1:48 PM CDT 04/09/2013 1:57 PM CDT Narrative [facility] - 04/09/2013 2:20 PM CDT Note: Diagnosis of myocardial infarction requires symptoms of ischemia or EKG changes of ischemia and TNI >99th of normal (0.05 ng/mL). Troponin should be drawn on initial assessment and 3-6 hours later as clinically indicated. Any condition resulting in myocardial cell damage can increase cardiac troponin levels. In addition to myocardial infarction, these include but are not limited to CHF, arrhythmia, myocarditis, and non-cardiac related causes such as pulmonary embolism, renal failure and sepsis. Raymundo Sanabria MD LAB - CHEMISTRY ORD ERABLES [facility] [address] [place] [address] * XR CHEST PA AND LATERAL (04/09/2013 10:51 AM CDT) Anatomical Region Laterality Modality Chest Radiographic Deanna ging 04/09/2013 11:5 5 AM CDT Impressions 04/09/2013 11:55 AM CDT No active disease. Narrative 04/09/2013 11:55 AM CDT Chest PA and lateral views. Indications: Chest Pain PA and lateral views of the chest were obtained. Comparison: none The heart is not enlarged. The aorta is normal in caliber. The lungs are clear. No confluent infiltrate or effusion is seen . There is no pneumothorax. The pulmonary vascularity is normal. No mass or adenopathy is seen. Procedure Note Sergio Santos MD - 04/09/2013 Chest PA and lateral views. Indications: Chest Pain PA and lateral views of the chest were obtained. Comparison: none The heart is not enlarged. The aorta is normal in caliber. The lungs are clear. No confluent infiltrate or effusion is seen . There is no pneumothorax. The pulmonary vascularity is normal. No mass or adenopathy is seen. IMPRESSION No active disease. Raymundo Sanabria MD DIAGNOSTIC IMAGING ORDERABLES * PT PTT PANEL (04/09/2013 10:08 AM CDT) Pathologist [facility] PT 10.8 9.3 - 11.4 sec 04/09/2013 10:29 AM CDT [facility] INR 1.05 0.9 - 1.2 04/09/2013 10:29 AM CDT [facility] PTT 28.8 24.0 - 32.0 sec 04/09/2013 10:29 AM CDT [facility] Blood specimen (specimen) BLOOD SPECIMEN / Unknown 04/09/2013 10:08 AM CDT 04/09/2013 10:15 AM CDT [facility] - 04/09/2013 10:29 AM CDT Conventional Anticoagulant Therapy INR Reference Ranges: 2.0-3.0 Intensive Anticoagulant Therapy INR Reference Ranges: 2.5-3.5 Raymundo Sanabria MD LAB - COAGULATION O RDERABLES [facility] [address] [place] [address] * (ABNORMAL) CBC W AUTO DIFFERENTIAL (04/09/2013 10:08 AM CDT) Only the most recent of2 resultswithin the time period is included. Pathologist [facility] WBC 4.8 4.4 - 10.7 x10^9/L 04/09/2013 10:[address] AM CDT [facility] RBC 3.91 3.80 - 5.40 x10^12/L 04/09/2013 10:21 AM CDT [facility] Hemoglobin 13.5 12.0 - 17.6 g/dL 04/09/2013 10:21 AM [address] [facility] Hematocrit 38.4 35.2 - 51.7 % 04/09/2013 10:21 AM T [facility] MCV 98.2 80.7 - 98.3 fl 04/09/2013 10:21 AM [facility] MCH 34.5(H) 26.7 - 34.0 pg 04/09/2013 10:[address] AM [address] [facility] MCHC 35.2 30.8 - 35.9 gm/dL 04/09/2013 10:21 AM T [facility] Platelet Count 154 153 - 416 x10^9/L 04/09/2013 10:21 AM [facility] RDW-CV 12.8 12.1 - 14.9 % 04/09/2013 10:21 AM [facility] MPV 10.3 9.4 - 12.9 fl 04/09/2013 10:21 AM [facility] Neutrophils % 59 44 - 73 % 04/09/2013 10:21 AM [facility] Lymphocytes % 25 20 - 43 % 04/09/2013 10:21 AM [address] [facility] Monocytes % 10 5 - 13 % 04/09/2013 10:21 AM [facility] Eosinophils % 4 0 - 6 % 04/09/2013 10:21 AM [facility] Basophils % 2 0 - 2 % 04/09/2013 10:21 AM [facility] Immature Granulocytes 0.2 0 - 1 % 04/09/2013 10:21 AM [address] [facility] Neutrophil Absolute 2.82 2.01 - 7.14 x10^9/L 04/09/2013 10:[address] AM [address] [facility] Lymphocytes Absolute 1.17 1.07 - 3.94 x10^9/L 04/09/2013 10:21 AM T [facility] Monocytes Absolute 0.47 0.26 - 1.07 x10^9/L 04/09/2013 10:21 AM [address] [facility] Eosinophils Absolute 0.21 0 - 0.47 x10^9/L 04/09/2013 10:21 AM [facility] Basophils Absolute 0.07 0 - 0.08 x10^9/L 04/09/2013 10:21 AM [facility] Immature Granulocytes Absolute 0.01 0.00 - 0.06 x10^9/L 04/09/2013 10:21 AM [facility] nRBC Auto 0 04/09/2013 10:21 AM [facility] Blood specimen (specimen) BLOOD SPECIMEN / Unknown 04/09/2013 10:08 AM CDT 04/09/2013 10:15 AM CDT Raymundo Sanabria MD LAB - HEMATOLOGY OR DERABLES [facility] [address] [place] [address] * (ABNORMAL) COMPREHENSIVE METABOLIC PANEL (04/09/2013 10:08 AM CDT) Only the most recent of2 resultswithin the time period is included. Glucose 115(H) 74 - 106 mg/dL 04/09/2013 10:40 AM [facility] Sodium 138 136 - 145 mmol/L 04/09/2013 10:40 AM [facility] Potassium 4.2 3.5 - 5.1 mmol/L 04/09/2013 10:40 AM [facility] Chloride 104 98 - 107 mmol/L 04/09/2013 10:40 AM [facility] CO2 26 22 - 31 mmol/L 04/09/2013 10:40 AM [facility] Calcium 8.5 8.5 - 10.1 mg/dL 04/09/2013 10:40 AM [facility] Anion Gap 8 5 - 15 mmol/L 04/09/2013 10:40 AM [facility] BUN 15 7 - 21 mg/dL 04/09/2013 10:40 AM [facility] Creatinine 0.72 0.50 - 1.30 mg/dL 04/09/2013 10:40 AM [facility] eGFR by MDRD >60 >60 ml/min/1.7 3m2 04/09/2013 10:40 AM [facility] eGFR by MDRD >60 >60 ml/min/1.7 3m2 04/09/2013 10:40 AM CDT [facility] Alkaline Phosphatase 83 38 - 126 U/L 04/09/2013 10:40 AM CDT [facility] ALT 90(H) 12 - 78 U/L 04/09/2013 10:40 AM CDT [facility] AST 47(H) 5 - 40 U/L 04/09/2013 10:40 AM T [facility] Protein Total 6.7 6.4 - 8.2 gm/dL 04/09/2013 10:40 AM CDT [facility] Albumin 3.7 3.4 - 5.0 gm/dL 04/09/2013 10:40 AM T [facility] Bilirubin Total 0.6 0.2 - 1.0 mg/dL 04/09/2013 10:40 AM CDT [facility] Blood specimen (specimen) BLOOD SPECIMEN / Unknown 04/09/2013 10:08 AM CDT 04/09/2013 10:15 AM CDT Raymundo Sanabria MD LAB - CHEMISTRY ORD ERABLES Performing Organization Address City/[facility] Co de Phone Number [facility] [address] [place] [address] * MAGNESIUM BLOOD (04/09/2013 10:08 AM CDT) Pathologist [facility] Magnesium 1.8 1.6 - 2.6 mg/dL 04/09/2013 10:37 AM CDT [facility] Blood specimen (specimen) BLOOD SPECIMEN / Unknown 04/09/2013 10:08 AM CDT 04/09/2013 10:15 AM CDT Raymundo Sanabria MD LAB - CHEMISTRY ORD ERABLES [facility] [address] [place] [address] * EKG 12-LEAD (04/09/2013 9:28 AM CDT) Ventricular Rate 69 BPM [facility] Atrial Rate 69 BPM [facility] P-R Interval [address] [facility] QRS Duration ms 106 ms [facility] Q-T Interval ms 410 ms [facility] QTC Calculation (Bezet) 439 ms [facility] Calculated P [place] 66 degrees [facility] Calculated R [place] 55 degrees [facility] Calculated T [place] 116 degrees [facility] Interpretation EKG Normal sinus rhythm Left ventricular hypertrophy with repolarization abnormality Nonspecific ST abnormality Abnormal ECG Confirmed by DORETHA CAMACHO MD ([id number]) on 04/11/2013 8:07:10 AM [facility] 04/09/2013 9:28 AM CDT 04/11/2013 8:07 AM CDT Narrative [facility] - 04/11/2013 8:08 AM CDT Procedure Note Document, Scanned - 04/11/2013 8:08 AM CDT Raymundo Sanabria MD ECG ORDERABLES [facility] Care Teams Paper Mill Superintendent Relationship Specialty Start Date End Date Rusty Tinoco MD [address] [place] [address] PCP - General Family Medicine 04/09/13
--- OUTSIDE RECORDS SUMMARY | 2024-12-05 13:17 | XMS_ITS | Referral Summary ---
Author Organization [facility] [address] [facility] [address] Address [address] [place] [address] Care Team Providers Care Lion Trainer Name Role Phone Rusty Tinoco MD Primary Care Provider Emily Alfred MD, Andres Henson Unavailable [phone] Denisse Tovar MD Unavailable [phone] Encounters Date Type Department Care Team Description 10/05/2024 10:30 AM HEEL WASHER STRINGING MACHINE OPERATOR Office Visit [facility] Card[facility] [address] [place] [address] Nahomy Zuniga NP HOCM (hypertrophic obstructive cardiomyopathy) (HCC); Coronary artery disease involving [place] coronary artery of [place] heart without angina pectoris; Lipid screening; S/P CABG x 3; Essential hypertension; Multiple-type hyperlipidemia; Dietary counseling; Recently quit using tobacco from Last 3 Months Allergies Active Allergy Reactions Criticality Noted Date Comments Amoxicillin Nausea only Low 03/01/2020 Medications cyanocobalamin (vitamin B-12) 500 mcg tablet take 1 by Oral route every day 0 2 Active citalopram (CeleXA) 40 mg tablet take 1 tablet by oral route every day 0 0 5 Active valACYclovir (VALTREX) 500 mg tablet Take 1 tablet (500 mg total) by mouth nightly 0 Active aspirin 81 mg chewable tabletIndications:D eep Vein Thrombosis Prevention Take 1 tablet (81 mg total) by mouth 2 (two) times a day 60 tablet 11/17/202 1 Active multivit-min/ferrou s fumarate (MULTI VITAMIN ORAL) Take by mouth Active ferrous gluconate 225 mg (27 mg iron) tablet 2 Active tamsulosin (FLOMAX) 0.4 mg extended release capsule 3 Active metoprolol XL (TOPROL-XL) 50 mg extended release tablet TAKE 1 TABLET BY MOUTH DAILY HOLD FOR HEART RATE LESS THAN 60 90 tablet 3 4 Active tadalafiL (CIALIS) 5 mg tablet Take 1 tablet (5 mg total) by mouth daily [facility] 5 Active cholecalciferol 25 mcg (1,000 unit) tablet Take 1 tablet (1,000 Units total) by mouth daily Active rosuvastatin (CRESTOR) 40 mg tabletIndications:M ultiple-type hyperlipidemia TAKE 1 TABLET BY MOUTH DAILY 90 tablet 3 5 Active Active Problems Problem Noted Date Diagnosed Date Gastrointestinal distress 10/04/2023 History of syncope 10/04/2023 Tobacco use 06/15/2021 Primary osteoarthritis of right hip 06/08/2021 Overview (06/08/2021): Added automatically from request for surgery [id number] Former smoker 09/17/2020 Coronary artery disease invo lving [place] coronary artery of [place] heart without angina pectoris 09/16/2020 HOCM (hypertrophic obstructive cardiomyopathy) ( [facility]) 09/15/2020 Other male erectile dysfunction 09/15/2020 Anemia 05/29/2020 Assessment & Plan (05/29/2020 9:39 AM CDT): Expected, related to post-op ABLA Daily CBC, while inpatient Adding iron gluconate plus MVI w/ iron (x 1 month) Expect SLOW uptrend. Obesity (BMI 30.0-34.9) 05/29/2020 Assessment & Plan (05/29/2020 10:00 AM CDT): Current BMI = 34.33 Ongoing fall & safety precautions. Alcohol use 03/14/2020 Essential hypertension 11/13/2018 Anxiety 01/31/2015 Overview (12/31/2016): Anxiety Obstructive sleep apnea syndrome 01/31/2015 Overview (12/31/2016): MARCIE (obstructive sleep apnea) Assessment & Plan (05/29/2020 9:50 AM CDT): Using home CPAP machine Assessment & Plan (04/29/2017 5:22 PM CDT): Noncompliant with CPAP S/P myomectomy 02/09/2014 Overview (12/29/2016): HOCM (hypertrophic obstructive cardiomyopathy) Assessment & Plan (05/29/2020 9:44 AM CDT): --S/p Myomectomy & CABG x 3 on 05/23 --Transferred out of ICU yesterday --Ongoing post-op care (telemetry, VS, I &O, weights, medication changes) --Ongoing aggressive pulm toilet plus PT --Ongoing diuresis with lasix & spironolactone --Continue aspirin, BB, statin--no peggy related to renal protection in post-op period --2v CXR today includes results of: Median sternotomy wires and coronary artery bypass graft markers are unchanged. Slight interval decrease in the size of a left pleural effusion which is small in volume. There is a small right pleural effusion, unchanged. There is mild bibasilar atelectasis. There is no pneumothorax. The cardiomediastinal silhouette is stable. --Discharge planning--possible for tomorrow. Assessment & Plan (04/29/2017 5:21 PM CDT): History of HOCM with a dynamic and occasionally very high outflow tract gradient. Noncompliant with medications in the past Minimally symptomatic, no significant arrhythmias, not much MR, no syncope. Seems to be doing well on very minimal medical therapy S/P CABG x 3 02/09/2014 Overview (12/31/2016): SUBENDO INFARCT, SUBSEQ Assessment & Plan (05/29/2020 9:52 AM CDT): --s/p myomectomy & CABG x 3 (FAULKNER to LAD, SVG to diagonal, L rad to RCA)-- on 05/23 --See s/p myomectomy problem, above Multiple-type hyperlipidemia 02/09/2014 Overview (12/31/2016): MIXED HYPERLIPIDEMIA Assessment & Plan (04/29/2017 5:22 PM CDT): POC lipids today: Total cholesterol 250, HDL 65, TG 62, LDL 173 Had minimal coronary plaquing by cath a few years ago, but regardless, with this degree of hyperlipidemia, I recommend statin therapy, per guidelines. Resolved Problems Problem Noted Date Diagnosed Date Resolved Date Preoperative cardiovascular examination 06/15/2021 06/09/2022 pain 05/29/2020 10/04/2023 Assessment & Plan (05/29/2020 9:37 AM CDT): Expected, related to post-op sternotomy Ongoing PRN tylenol & oxy Laxatives for decreased mobility and narcotic side effects Will improve as he recuperates from this surgery Syncope and collapse 03/11/2020 020 Syncope and collapse 11/13/2018 024 Social History Tobacco Use Types Packs/Day Years Used Date Smoking Tobacco: Former Cigarettes 1.3 45.7 0 09/27/1975 - 06/26/2021 Smokeless Tobacco: Never Comments:Quit multiple times Alcohol Use Standard Drinks/Week Comments Yes 16 (1 standard drink = 0.6 oz pu re alcohol) 16 per day AUDIT-C Answer Date Recorded Q1: How often do you have a drink containing alcohol? 4 or more times a week 08/11/2021 Average Number of Drinks Not on file 021 Frequency of Binge Drinking Not on file 07/27 Sex and Gender Information Value Date Recorded Sex Assigned at Not on file Legal Sex Male 12:11 AM HEEL WASHER STRINGING MACHINE OPERATOR Gender Identity Male 05/25/2020 11:53 AM CDT Sexual Orientation Straight 05/25/2020 11 :53 AM CDT Last Filed Vital Signs Vital Sign Reading Time Taken Comments Blood Pressure 132/70 10/05/2024 10:40 AM HEEL WASHER STRINGING MACHINE OPERATOR Pulse 62 10/05/2024 10:40 AM HEEL WASHER STRINGING MACHINE OPERATOR Temperature 36.6 C (97.9 F) 08/12/2021 9:10 AM HEEL WASHER STRINGING MACHINE OPERATOR Respiratory Rate 18 08/12/2021 9:10 AM HEEL WASHER STRINGING MACHINE OPERATOR Oxygen Saturation 96% 10/05/2024 10:40 AM HEEL WASHER STRINGING MACHINE OPERATOR Inhaled Oxygen Concentration - - Weight 108.9 kg (240 lb) 10/05/2024 10:40 AM HEEL WASHER STRINGING MACHINE OPERATOR Height 180.3 cm (5' 11 ) 10/05/2024 10:40 AM HEEL WASHER STRINGING MACHINE OPERATOR Body Mass Index 33.47 10/05/2024 10:40 AM HEEL WASHER STRINGING MACHINE OPERATOR Plan of Treatment Not on file Medical Devices Implanted Type Area Software Applications Specialist Device Identifier Shelf Expiration Date Model / Serial / Lot [employer] [id number] Cup 55mm Acetabular Bi Mentum Femoral Proximal Press Fit - Sn/A - [id number] Implanted:Qty: 1 on 08/11/2021 by Clinton Dumas MD at [facility] Other - see comments Right: Hip [employer] [id number] 05/26/2024 [id number] / N/A / [id number] [employer] [id number] Liner 55mm 28mm Acetabular Bi Mentum Femoral Proximal Polyethylene - Sn/A - [id number] Implanted:Qty: 1 on 08/11/2021 by Clinton Dumas MD at [facility] Other - see comments Right: Hip [employer] [id number] 07/26/2025 [id number] / N/A / [id number] [employer] [id number] Stem Fem 205mm Rev Corail Ti Marcial 135d 15 High Offset - Sn/A - [id number] Implanted:Qty: 1 on 08/11/2021 by Clinton Dumas MD at [facility] Other - see comments Right: Hip [employer] [id number] 01/23/2022 [id number] / N/A / [id number] [employer] [id number] Articul/Jose Guadalupe 28mm Cementless Hip +1.5mm 12/14 Taper Head Femoral Latex Free - Sn/A - [id number] Implanted:Qty: 1 on 08/11/2021 by Clinton Dumas MD at [facility] Other - see comments Right: Hip [employer] [id number] 02/23/2026 [id number] / N/A / [id number] Explanted Type Area Software Applications Specialist Device Identifier Shelf Expiration Date Model / Serial / Lot Fermoral Nail Explanted:Qty: 1 on 08/11/2021 by Baldev Keating MD at [facility] Right: Hip Other Description:IMPLANT SENT TO STERILE PROCESSING TO BE AUTOCLAVED AND RETURNED TO PATIENT Procedures Procedure Name Priority Date/Time Associated Diagnosis Comments POCT LIPID PANEL Routine 10/05/2024 10:4 7 AM HEEL WASHER STRINGING MACHINE OPERATOR Lipid screening from Last 3 Months Results * POCT lipid panel (10/05/2024 10:47 AM HEEL WASHER STRINGING MACHINE OPERATOR) Cholesterol, POC 170 mg/dL HDL, POC 49 mg/dL Triglycerides, POC 227 mg/dL LDL Cholesterol POC 75 mg/dL Chol/HDL Ratio, POC 1.5 Non-HDL Cholesterol, POC 120 mg/dL Cholesterol Total, POC 170 mg/dL Capillary blood 10/05/2024 1 0:47 AM HEEL WASHER STRINGING MACHINE OPERATOR Nahomy Zuniga NP POINT OF CARE TEST ORDERA BLES Final Result from Last 3 Months Insurance MEDICARE MEDICARE SOLUTIONS [facility] MEDICARE SOLUTIONS Advance Directives For more information, please contact: [phone] * Full Code (Latest Code Status on File) Date Activated Date Inactivated Comments 08/11/2021 5:40 PM 08/12/2021 4:10 PM * Full Code Date Activated Date Inactivated Comments 05/23/2020 7:38 PM 05/30/2020 3:20 PM * Full Code Date Activated Date Inactivated Comments 05/09/2020 4:41 PM 05/09/2020 10:31 PM Care Teams Lion Trainer Relationship Specialty Start Date End Date Rusty Tinoco MD PCP - General 08/31/11 Andres Diaz Jr., MD Surgeon Cardiothoracic Surgery 05/30/20 Denisse Tovar MD Consulting Physician Cardiology 06/30/20
--- OUTSIDE RECORDS SUMMARY | 2024-12-05 13:17 | XMS_ITS | Encounter Summary ---
Author Organization [facility] Healthcare Address [address] [place] [address] Care Team Providers Care Flight Paramedic Name Role Phone Rusty Tinoco MD Primary Care Provider [phone] Emily Alfred MD, Andres Henson Unavailable [phone] Denisse Tovar MD Unavailable [phone] Encounter Details Date Type Department Care Team (Latest Contact Info) Description 03/01/2020 Ophth Exam Ophthalmology Rancho Lord MD [address] [facility], [place] [id number] Social History Tobacco Use Types Packs/Day Years Used Date Smoking Tobacco: Former Smokeless Tobacco: Never Comments:Smoking History Pac ks/day: 1 Packs Alcohol Use Standard Drinks/Week Comments Yes 0 (1 standard drink = 0.6 oz pur e alcohol) Sex and Gender Information Value Date Recorded Sex Assigned at Not on file Legal Sex Male 12:11 AM IMPLEMENTATION ARCHITECT Gender Identity Male 05/25/2020 11:53 AM CDT Sexual Orientation Straight 05/25/2020 11 :53 AM CDT documented as of this encounter Plan of Treatment Not on file documented as of this encounter Visit Diagnoses Not on filedocumented in this encounter Eye Exam Visual Acuity Right eye Left eye Near cc 20/20 20/20 Tonometry (11:16 PM) Right eye Left eye Pressure 15 22 Pupils Dark Light Shape React APD Right eye 3 2 Round Brisk None Left eye 4 2.5 Round Brisk None Visual Ardon Right eye Left eye Full Full Extraocular Movement Right eye Left eye Up gaze -- 0 -- -- -1 -- Right/left gaze 0 -- 0 0 -- -1 Down gaze -- 0 -- -- -1 -- Dilation Both eyes: 1% Tropicamide, 2 .5% Phenylephrine @ 11:16 PM Color Right eye Left eye Leviihara External Exam Right eye Left eye External Normal periorbital ecch ymosis and edema Slit Lamp Exam Right eye Left eye Lids/Lashes Normal periorbital rajesh a and ecchymosis, some subcutaneous emphysema Conjunctiva/Sclera White and quiet [address] CH. Mostly inferior and lateral Cornea Clear Clear Anterior Chamber Deep, formed, no hyphema Deep, formed, no hyphema Iris Round and reactive Round and jayant ctive Lens Clear Clear Vitreous Normal Normal, no heme Fundus Exam Right eye Left eye Disc Normal, sharp margins thin rim s uperiorly C/D Ratio 0.7 0.75 Macula Normal Normal Vessels Normal Normal Periphery Normal Normal Care Teams Flight Paramedic Relationship Specialty Start Date End Date Rusty Tinoco MD PCP - General 08/31/11 Andres Diaz Jr., MD Surgeon Cardiothoracic Surgery 05/30/20 Denisse Tovar MD Consulting Physician Cardiology 06/30/20 documented as of this encounter
--- OUTSIDE RECORDS SUMMARY | 2024-12-05 13:17 | XMS_ITS | Clinical Summary ---
Author Organization [facility] [address] Address [address] [place] [address] Care Team Providers Care Steel Pourer Name Role Phone Rusty Tinoco MD Primary Care Provider [phone] Emily Alfred MD, Andres Henson Unavailable [phone] LeobardoDenisse jones MD Unavailable [phone] Allergies Active Allergy Reactions Criticality Noted Date [...] 2 (two) times a day 60 tablet 1 Active multivit-min/ferrou s fumarate (MULTI VITAMIN [...] tablet (5 mg total) by mouth daily [facility] 5 Active cholecalciferol 25 mcg (1,000 [...] (06/08/2021): Added automatically from request for surgery [id number] Former smoker 09/17/2020 Coronary artery disease invo lving [place] coronary artery of [place] heart without angina pectoris 09/16/2020 HOCM (hypertrophic obstructive cardiomyopathy) ( [facility]) 09/15/2020 Other male erectile dysfunction 09/15/2020 Anemia [...] 03/11/2020 020 Syncope and collapse 11/13/2018 024 Encounters Date Type Department Care Team Description 10/05/2024 10:30 AM TECHNICAL SOLUTIONS DIRECTOR Office Visit [facility] Cardiology [address] [place] [address] Nahomy Zuniga NP HOCM (hypertrophic obstructive cardiomyopathy) (HCC); Coronary artery disease involving [place] coronary artery of [place] heart without angina pectoris; Lipid screening; S/P CABG x 3; Essential hypertension; Multiple-type hyperlipidemia; Dietary counseling; Recently quit using tobacco from Last 3 Months Surgical History Surgery Date Site/Laterality Comments POSTERIOR FUSION LUMBAR SPINE 09/26/2016 - 09/25/2017 CARDIAC CATHETERIZATION 04/26/2020 - 05/26/2020 TONSILLECTOMY 09/26/1981 - 09/25/1982 CLAVICLE SURGERY 09/26/2001 - 09/25/2002 HERNIA REPAIR 09/26/2013 - 09/25/2014 ULNAR COLLATERAL LIGAMENT RECONSTRUCTION 09/26/2014 - 09/25/2015 MYOMECTOMY 04/26/2020 - 05/26/2020 CORONARY ARTERY BYPASS GRAFT 04/26/2020 - 05/26/2020 CARDIAC SURGERY TOTAL HIP ARTHROPLASTY Right FRACTURE SURGERY 01/2022 JOINT REPLACEMENT 08/2021 SPINE SURGERY 05/2017 Medical History Medical History Date Comments Hx Other Medical 2014 Right elbow/uln ar nerve? surgery; Comments: ELU 08/12/2015 -; Laterality: right HOCM (hypertrophic obstructi ve cardiomyopathy) (HCC) Syncope MR (mitral regurgitation) Pulmonary hypertension (HCC) CHF (congestive heart failure) (HCC) Myocardial infarction (HCC) 2010 Heart murmur Hyperlipidemia CAD (coronary artery disease) Hypertension Anxiety H/O ETOH abuse MARCIE (obstructive sleep apnea) Us es CPAP Alcohol abuse Family History Medical History Relation Name Comments Heart disease Brother Roberto VAvle surgery, pig valve Heart disease Father Kvein atrial fib Hyperlipidemia Father Kevin Hyperlipidemi a; Heart disease Sister Fabi valve problem Relation Name Status Comments Brother Roberto Alive Father Kevin (Age 89) Mother Alive Doing OK age 90 in 2017 Sister Fabi Alive Social History Tobacco Use Types Packs/Day Years [...] on file Legal Sex Male 12:11 AM TECHNICAL SOLUTIONS DIRECTOR Gender Identity Male 05/25/2020 11:53 AM CDT Sexual Orientation Straight 05/25/2020 11 :53 AM CDT Obstetrics History Last Filed Vital Signs Vital Sign Reading Time Taken Comments Blood Pressure 132/70 10/05/2024 10:40 AM TECHNICAL SOLUTIONS DIRECTOR Pulse 62 10/05/2024 10:40 AM TECHNICAL SOLUTIONS DIRECTOR Temperature 36.6 C (97.9 F) 08/12/2021 9:10 AM TECHNICAL SOLUTIONS DIRECTOR Respiratory Rate 18 08/12/2021 9:10 AM TECHNICAL SOLUTIONS DIRECTOR Oxygen Saturation 96% 10/05/2024 10:40 AM TECHNICAL SOLUTIONS DIRECTOR Inhaled Oxygen Concentration - - Weight 108.9 kg (240 lb) 10/05/2024 10:40 AM TECHNICAL SOLUTIONS DIRECTOR Height 180.3 cm (5' 11 ) 10/05/2024 10:40 AM TECHNICAL SOLUTIONS DIRECTOR Body Mass Index 33.47 10/05/2024 10:40 AM TECHNICAL SOLUTIONS DIRECTOR Plan of Treatment Health Maintenance Due Date Last Done Comments Colon Cancer Screening-Colonoscopy 1960 Depression Screening 1960 Hepatitis C Screening 1960 Prostate Cancer Screening-PSA 1960 DTaP/Tdap/Td Vaccine (1 - Tdap) 02/04/1971 Hepatitis B Screening 02/04/1978 Regular Well Visit/Exam 18-64 02/04/1978 Lung Cancer Screening 02/04/2010 Covid-19 Vaccine ( season) 2024 06/18/2021, 05/28/2021, 12/20/2020, Additional history exists Influenza Vaccine (#1) 2024 , 07/19/2018, 07/06/2017 Zoster Vaccine Completed 07/27/2021, 05/28/2021 Pneumococcal vaccine <65 Aged Out No longer eligible based on patient's age to complete this topic Medical Devices Implanted Type Area High School History Teacher Device Identifier Shelf Expiration Date Model / Serial / Lot [employer] [id number] Cup 55mm Acetabular Bi Mentum Femoral Proximal Press Fit - Sn/A - [id number] Implanted:Qty: 1 on 08/11/2021 by Clinton Dumas MD at [facility] Other - see comments Right: Hip [employer] [id number] 05/26/2024 [id number] / N/A / [id number] [employer] [id number] Liner 55mm 28mm Acetabular Bi Mentum Femoral Proximal Polyethylene - Sn/A - [id number] Implanted:Qty: 1 on 08/11/2021 by Clinton Dumas MD at [facility] Other - see comments Right: Hip [employer] [id number] 07/26/2025 [id number] / N/A / [id number] [employer] [id number] Stem Fem 205mm Rev Corail Ti Marcial 135d 15 High Offset - Sn/A - [id number] Implanted:Qty: 1 on 08/11/2021 by Clinton Dumas MD at [facility] Other - see comments Right: Hip [employer] [id number] 01/23/2022 [id number] / N/A / [id number] [employer] [id number] Articul/Jose Guadalupe 28mm Cementless Hip +1.5mm 12/14 Taper Head Femoral Latex Free - Sn/A - [id number] Implanted:Qty: 1 on 08/11/2021 by Clinton Dumas MD at [facility] Other - see comments Right: Hip [employer] [id number] 02/23/2026 [id number] / N/A / [id number] Explanted Type Area High School History Teacher Device Identifier Shelf Expiration Date Model / Serial / Lot Fermoral Nail Explanted:Qty: 1 on 08/11/2021 by Baldev Keating MD at [facility] Right: Hip Other Description:IMPLANT SENT TO STERILE PROCESSING TO BE AUTOCLAVED AND RETURNED TO PATIENT Procedures Procedure Name Priority Date/Time Associated Diagnosis Comments POCT LIPID PANEL Routine 10/05/2024 10:4 7 AM TECHNICAL SOLUTIONS DIRECTOR Lipid screening from Last 3 Months Results * POCT lipid panel (10/05/2024 10:47 AM TECHNICAL SOLUTIONS DIRECTOR) Cholesterol, POC 170 mg/dL HDL, POC 49 mg/dL Triglycerides, POC 227 mg/dL LDL Cholesterol POC 75 mg/dL Chol/HDL Ratio, POC 1.5 Non-HDL Cholesterol, POC 120 mg/dL Cholesterol Total, POC 170 mg/dL Capillary blood 10/05/2024 1 0:47 AM TECHNICAL SOLUTIONS DIRECTOR Nahomy Zuniga NP POINT OF CARE TEST ORDERA BLES Final Result from Last 3 Months Insurance MEDICARE MEDICARE SOLUTIONS [facility] MEDICARE SOLUTIONS Advance Directives For more information, please contact: [phone] * Full Code (Latest Code Status on File) Date Activated Date Inactivated Comments 08/11/2021 5:40 PM 08/12/2021 4:10 PM * Full Code Date Activated Date Inactivated Comments 05/23/2020 7:38 PM 05/30/2020 3:20 PM * Full Code Date Activated Date Inactivated Comments 05/09/2020 4:41 PM 05/09/2020 10:31 PM Care Teams Steel Pourer Relationship Specialty Start Date End Date Rusty Tinoco MD PCP - General 08/31/11 Andres Diaz Jr., MD Surgeon Cardiothoracic Surgery 05/30/20 Denisse Tovar MD Consulting Physician Cardiology 06/30/20
--- OUTSIDE RECORDS SUMMARY | 2024-12-05 13:17 | XMS_ITS | Referral Summary ---
Author Organization [facility] Address [address] [place] [address] Care Team Providers Care Bell Neck Hammerer Name Role Phone Rusty Tinoco MD Primary Care Provider [phone] Source Comments [facility],non-owned Affiliates and Associated Physician Practices is amultiple site organization consisting of ambulatory clinics and hospital sitesin [place], [place], [place] and [place]. This disclosure is being madepursuant to the Care Everywhere program and may not contain all information available regarding this patient. Last updated 18.[facility] Allergies No known active allergies Medications * [...] 04/09/2013 9:33 AM CDT Plan of Treatment Not on file Care Teams Bell Neck Hammerer Relationship Specialty Start Date End Date Rusty Tinoco MD [address] [place] [address] PCP - General Family Medicine 04/09/13
--- OUTSIDE RECORDS SUMMARY | 2024-12-05 13:38 | XMS_ITS | CONTINUITY OF CARE DOCUMENT ---
Author Name chris perez Address Unknown Organization [facility] Address [address] [place] [address] Phone [phone] Care Team Providers Care Skating Carhop Name Role Phone Torey Perdomo DO Unavailable GREG GARCIA, PARESH Razo Unavailable GREG GARCIA, PARESH Razo Unavailable [phone] PROBLEMS Condition Status Date Provider Notes Cardiovascular screening completed - Torey Perdomo DO PVD - unspecified active Torey Perdomo DO Hypercholesterolemia active Torey Perdomo DO Preop cardiovasc. examination active Torey Perdomo DO Dyspnea on exertion completed - Torey Perdomo DO Peptic ulcer active Torey Perdomo DO Claudication Intermittent completed 12/13 - Torey Perdomo DO Tobacco abuse active Torey Perdomo DO Family Hx heart disease active Prema eep Chace Perdomo DO CAD active Torey Perdomo DO Claudication Intermittent active Pr jaida Perdomo DO Elevated blood pressure read ing without diagnosis of hypertension active Mateo Perdomo DO ENCOUNTERS Date Type Provider Location Encounter Diag nosis - In-person encounter Office Visit Torey Perdomo DO [facility] - In-person encounter Office Visit Torey [...] Perdomo blood pressure, diastolic 80 mm[Hg] Feli [facility] blood pressure, systolic 150 mm[Hg] Keyana [facility] blood pressure, cuff size regular [facility] blood pressure, diastolic 80 mm[Hg] [facility] blood pressure, systolic 150 mm[Hg] Mark gil [place] pulse rate 73 /min [facility] oxygen saturation, oximetry 99 % [facility] respiratory rate E&M 19 /min [facility] weight E&M 145 [lb_av] [facility] height E&M 71 [in_i] [facility] Body Mass Index (Ratio) 21.20 kg/m2 [facility] Chace Perdomo blood pressure, diastolic 88 mm[Hg] Feli nkLog blood pressure, systolic 133 mm[Hg] Keyana kLog blood pressure, diastolic 88 mm[Hg] Katelynn reynoso Radha blood pressure, systolic 133 mm[Hg] Aidan helcarmen Radha oxygen saturation, oximetry 98 % Ifrah Radha pulse rate 85 /min Ifrah Radha respiratory rate E&M 20 /min Saige mullins [place] weight E&M 152 [lb_av] Ifrah [place] height E&M 71 [in_i] Ifrah Radha Body Mass Index (Ratio) 19.80 kg/m2 Prad [facility] Chace Perdomo DO blood pressure, diastolic 115 [...] Chi Body Mass Index (Ratio) 23.43 kg/m2 [facility] Chace Perdomo DO blood pressure, diastolic 80 mm[Hg] Ma rsha O'John blood pressure, systolic 110 mm[Hg] Mar sha O'John oxygen saturation, oximetry 91 % Maryanne O'John respiratory rate E&M 16 /min Maryanne O'John pulse rate 68 /min Maryanne O'John weight E&M 168 [lb_av] Maryanne O'John height E&M 71 [in_i] Maryanne O'John Body Mass Index (Ratio) 24.27 kg/m2 [facility] Chace Perdomo DO blood pressure, diastolic 84 mm[Hg] Sisi Blackwell blood pressure, systolic 160 mm[Hg] Arleth Blackwell oxygen saturation, oximetry 98 % Lauren Blackwlel respiratory rate E&M 18 /min Makenna Blackwell pulse rate 84 /min Lauren seth weight E&M 174 [lb_av] Lauren seth height E&M 71 [in_i] Lauren seth Body Mass Index (Ratio) 23.99 kg/m2 [facility] Chace Perdomo DO blood pressure, cuff size [...] Estab. 3 platelet count 211 X10E3/UL [facility] [phone]/07/1 3 red blood cell distribution width 13.0 [...] 3.5-5.2 3 sodium, serum 141 mmol/L [facility] 250-300 1181/07/1 3 urea nitrogen/creatinine ratio, serum 13 [facility] [...] High 6 cholesterol, serum 178 mg/dL [facility] [phone]/04/1 6 calcium, serum 10.8 mg/dL [facility] 8.7-10.2 High 6 carbon dioxide, venous blood 23 mmol/L [facility] 20-29 6 chloride, serum 103 mmol/L [facility] 96-106 6 potassium, serum 5.1 mmol/L [facility] 3.5-5.2 6 sodium, serum 141 mmol/L [facility] 604-132 5853/04/1 6 urea nitrogen/creatinine ratio, serum 16 LinkLogic [...] Estab. 6 platelet count 267 X10E3/UL [facility] [phone]/04/1 6 red blood cell distribution width 18.6 [...] tablet active 1 tablet once a day [facility] TYLENOL EXTRA STRENGTH 500 MG TABS active 2 tablet four times a day [facility] PRILOSEC OTC 20 MG ORAL TABLET DELAYED RELEASE completed one tab once daily - [facility] PLAVIX 75 MG ORAL TABLET completed Take one tab daily - [facility] ZANTAC 150 MAXIMUM STRENGTH TABLET completed take one tablet by mouth once daily - Maryanne O'John SENOKOT S TABLET completed take one tablet by mouth once daily - [facility] GABAPENTIN 300 MG ORAL CAPSULE completed take [...] ation, patient education and counseling yes Ifrah [place] number of years as a smoker 46 [...] Policy type / Coverage type Frieda red green party ID [employer] CHOICE POS II [employer] insurance company [id number] ADVANCE DIRECTIVES Name Date DISCUSSED - NO DECISION MADE TREATMENT PLAN Date Name Performer [id number],C, C oronary ca score 31 (Cx) S tress test 12/19/18 negative for ischemia m ed rx r esume statin oTrey Perdomo DO [id number],C, s tarted amlodipine 5 Torey Perdomo DO [id number],C, L DL 74 HDL 54 in 01/12 Cholesterol, Total [H] 222 mg/dL 100-199 Triglycerides 88 mg/dL 0-149 HDL Cholesterol 73 mg/dL >39 ! VLDL Cholesterol Ford 15 mg/dL 5-40 LDL Chol Calc ([facility]) [H] 134 mg/dL 0-99 r esumed atorva His updated medication list for this problem includes: Atorvastatin 40 Mg Tablet (Atorvastatin) ..... 1 every night Torey Perdomo DO [id number],C, l eft iliac stented 03/14 a bi post suggests drying supervisor stenosis right in 19 c onfirmed iliac occlusion aif A IF 05/05/21 occluded right common iliac artery, stented, c/b thrombotic occlusion of left maribeth s/p thrombectomy, covered stent placement proximal sfa s top plavix c urrently on eliquis will change to low dose xarelto with aspirin Torey Perdomo [id number],C, l eft iliac stented 03/14 a bi post suggests drying supervisor stenosis right in 19 c onfirmed iliac occlusion aif A IF 05/05/21 occluded right common iliac artery, stented, c/b thrombotic occlusion of left maribeth s/p thrombectomy, covered stent placement proximal sfa s top plavix after a month. c urrently on eliquis will change to low dose xarelto with aspirin in a month. Torey Perdomo DO [id number],C,s tart amlodipine 5 Torey Perdomo DO [id number],C, s top nsaids u se tylenol Torey Perdomo [id number],C, l eft iliac stented 03/14 a bi post suggests drying supervisor stenosis right in c onfirmed iliac occlusion aif s tented/fixed 05/16 s top plavix after a month. c urrently on eliquis will change to low dose xarelto with aspirin in a month. Torey Perdomo [id number],C, L DL 74 HDL 54 in 01/12 Cholesterol, Total [H] 222 mg/dL 100-199 Triglycerides 88 mg/dL 0-149 HDL Cholesterol 73 mg/dL >39 ! VLDL Cholesterol Ford 15 mg/dL 5-40 LDL Chol Calc ([facility]) [H] 134 mg/dL 0-99 r esumed atorva His updated medication list for this problem includes: Atorvastatin 40 Mg Tablet (Atorvastatin) ..... 1 every night Torey Perdomo [id number],C, C oronary ca score 31 (Cx) S tress test 12/19/18 negative for ischemia m ed rx r esume statin Torey Perdomo [id number],C, l eft iliac stented 03/14 zelda post suggests drying supervisor stenosis right in 19 m ore claudication, no wounds or ulcers. has pain and a palpable 'lump' right groin will u/s first then plan angio Torey Perdomo [id number],C,n eeds to check at home and monitor. Torey Perdomo [id number],C,a bi n eeds aif Torey Perdomo [id number],C, L DL 74 HDL 54 in 01/12 resume atorva Torey Perdomo [id number],C,C oronary ca score 31 (Cx) S tress test 12/19/18 negative for ischemia m ed rx o ff plavix currently r esume statin Torey Perdomo DO [id number],C, l eft iliac stented 03/14 d apt a bi post suggests drying supervisor stenosis right in 19 h as pain [...] Ford 15 mg/dL 5-40 LDL Chol Calc ([facility]) [H] 134 mg/dL 0-99 r esumed atorva His updated medication list for this problem includes: Atorvastatin 40 Mg Tablet (Atorvastatin) ..... 1 every night Torey Perdomo DO Cardiology: l eft iliac stented 03/14 a bi post suggests drying supervisor stenosis right in c onfirmed iliac occlusion aif A IF 05/05/21 occluded right common iliac artery, stented, c/b thrombotic occlusion of left maribeth s/p thrombectomy, covered stent placement proximal sfa s top plavix c urrently on eliquis will change to low dose xarelto with aspirin Torey Perdomo DO Cardiology need fin: l eft iliac stented 03/14 a bi post suggests drying supervisor stenosis right in 19 c onfirmed iliac occlusion aif A IF 05/05/21 occluded right common iliac artery, stented, c/b thrombotic occlusion of left maribeth s/p thrombectomy, covered stent placement proximal sfa s top plavix after a month. c urrently on eliquis will change to low dose xarelto with aspirin in a month. Torey Perdomo DO Cardiology need fin: start amlodipine 5 Torey Perdomo DO Cardiology need fin: s top nsaids u se tylenol Torey Perdomo DO Cardiology need fin: l eft iliac stented 03/14 a bi post suggests drying supervisor stenosis right in 19 c onfirmed iliac occlusion aif s tented/fixed 05/16 s top plavix after a month. c urrently on eliquis will change to low dose xarelto with aspirin in a month. Torey Perdomo DO Cardiology need fin: L DL 74 HDL 54 in 01/12 Cholesterol, Total [H] 222 mg/dL 100-199 Triglycerides 88 mg/dL 0-149 HDL Cholesterol 73 mg/dL >39 ! VLDL Cholesterol Ford 15 mg/dL 5-40 LDL Chol Calc ([facility]) [H] 134 mg/dL 0-99 r esumed atorva His updated medication list for this problem includes: Atorvastatin 40 Mg Tablet (Atorvastatin) ..... 1 every night Torey Perdomo DO Cardiology need fin: C oronary ca score 31 (Cx) S tress test 12/19/18 negative for ischemia m ed rx r esume statin Torey Perdomo DO Cardiology: l eft iliac stented 03/14 zelda post suggests drying supervisor stenosis right in 19 m ore claudication, no wounds or ulcers. has pain and a palpable 'lump' right groin will u/s first then plan angio Torey Perdomo DO Cardiology:needs to check at angel e and monitor. Torey Perdomo DO Cardiology:zelda n eeds aif Torey Perdomo DO Cardiology: L DL 74 HDL 54 in 01/12 resume atorva Torey Perdomo DO Cardiology:Coronary ca score 31 (Cx) S tress test 12/19/18 negative for ischemia m ed rx o ff plavix currently r esume statin Torey Perdomo DO Cardiology: l eft iliac stented 03/14 d apt a bi post suggests drying supervisor stenosis right in 19 h as pain and a palpable 'lump' right groin will u/s first then plan angio Torey Perdomo DO Cardiology: n eeds back sg [...] e cho s tress test c acs Toreygenaro Perdomo DO Cardiology:cardiac risk assesmen t needed Torey Perdomo DO Date Name Arterial Duplex Bi-L ower EX [...] tatus EKG Torey Perdomo DO completed EKG Torey Perdomo DO completed EKG Torey Barnesra DO completed EKG Torey Perdomo DO completed FVC / MVV with bronchodilator - 65404 Torey Perdomo DO completed BLOOD COUNT HEMOGLOBIN Torey Perdomo DO completed FRC - 14376 Torey Perdomo DO completed SpO2 w/o 6min walk/titration Torey Perdomo DO completed DLCO - 06381 Torey Perdomo DO completed EKG Toreygenaro Perdomo DO completed Stress EKG Dm Olmstead MD completed Cardiolite, 2 units Brandon Avendaño MD completed SPECT Images Brandon Avendaño MD compl eted CT- Coronary CA score Torey Perdomo DO completed EKG Torey Perdomo DO completed
--- OUTSIDE RECORDS SUMMARY | 2024-12-05 13:38 | XMS_ITS | Patient Health Summary ---
Author Organization [facility] Address [address] [place] [address] Care Team Providers Care Mountain Or Glacier Guide Name Role Phone Rusty Tinoco MD Primary Care Provider [phone] Note from [facility],non-owned Affiliates and Associated Physician Practices is amultiple site organization consisting of ambulatory clinics and hospital sitesin [place], [place], [place] and [place]. This disclosure is being madepursuant to the Care Everywhere program and may not contain all information available regarding this patient. Last updated 18.[facility] [employer] Allergies No known active allergies Medications * [...] - 0.049 ng/mL 04/09/2013 2:20 PM CDT [facility] Blood specimen (specimen) BLOOD SPECIMEN / Unknown Lab Venipuncture / Unknown 04/09/2013 1:48 PM CDT 04/09/2013 1:57 PM CDT Narrative [facility] - 04/09/2013 2:20 PM CDT Note: [...] Sanabria MD LAB - CHEMISTRY ORD ERABLES [facility] [address] [place] [address] * XR CHEST PA AND LATERAL (04/09/2013 [...] PTT PANEL (04/09/2013 10:08 AM CDT) Pathologist [facility] PT 10.8 9.3 - 11.4 sec 04/09/2013 10:29 AM CDT [facility] INR 1.05 0.9 - 1.2 04/09/2013 10:29 AM CDT [facility] PTT 28.8 24.0 - 32.0 sec 04/09/2013 10:29 AM CDT [facility] Blood specimen (specimen) BLOOD SPECIMEN / Unknown 04/09/2013 10:08 AM CDT 04/09/2013 10:15 AM CDT [facility] - 04/09/2013 10:29 AM CDT Conventional Anticoagulant Therapy INR Reference Ranges: 2.0-3.0 Intensive Anticoagulant Therapy INR Reference Ranges: 2.5-3.5 Raymundo Sanabria MD LAB - COAGULATION O RDERABLES [facility] [address] [place] [address] * (ABNORMAL) CBC W AUTO DIFFERENTIAL (04/09/2013 10:08 AM CDT) Only the most recent of2 resultswithin the time period is included. Pathologist [facility] WBC 4.8 4.4 - 10.7 x10^9/L 04/09/2013 10:21 AM CDT [facility] RBC 3.91 3.80 - 5.40 x10^12/L 04/09/2013 10:21 AM CDT [facility] Hemoglobin 13.5 12.0 - 17.6 g/dL 04/09/2013 10:21 AM T [facility] Hematocrit 38.4 35.2 - 51.7 % 04/09/2013 10:21 AM T [facility] MCV 98.2 80.7 - 98.3 fl 04/09/2013 10:21 AM [facility] MCH 34.5(H) 26.7 - 34.0 pg 04/09/2013 10:21 AM CDT [facility] MCHC 35.2 30.8 - 35.9 gm/dL 04/09/2013 10:21 AM T [facility] Platelet Count 154 153 - 416 x10^9/L 04/09/2013 10:21 AM [facility] RDW-CV 12.8 12.1 - 14.9 % 04/09/2013 10:21 AM [facility] MPV 10.3 9.4 - 12.9 fl 04/09/2013 10:21 AM [facility] Neutrophils % 59 44 - 73 % 04/09/2013 10:21 AM [facility] Lymphocytes % 25 20 - 43 % 04/09/2013 10:21 AM T [facility] Monocytes % 10 5 - 13 % 04/09/2013 10:21 AM [facility] Eosinophils % 4 0 - 6 % 04/09/2013 10:21 AM [facility] Basophils % 2 0 - 2 % 04/09/2013 10:21 AM [facility] Immature Granulocytes 0.2 0 - 1 % 04/09/2013 10:21 AM T [facility] Neutrophil Absolute 2.82 2.01 - 7.14 x10^9/L 04/09/2013 10:21 AM CDT [facility] Lymphocytes Absolute 1.17 1.07 - 3.94 x10^9/L 04/09/2013 10:21 AM T [facility] Monocytes Absolute 0.47 0.26 - 1.07 x10^9/L 04/09/2013 10:21 AM T [facility] Eosinophils Absolute 0.21 0 - 0.47 x10^9/L 04/09/2013 10:21 AM [facility] Basophils Absolute 0.07 0 - 0.08 x10^9/L 04/09/2013 10:21 AM [facility] Immature Granulocytes Absolute 0.01 0.00 - 0.06 x10^9/L 04/09/2013 10:21 AM [facility] nRBC Auto 0 04/09/2013 10:21 AM [facility] Blood specimen (specimen) BLOOD SPECIMEN / Unknown 04/09/2013 10:08 AM CDT 04/09/2013 10:15 AM CDT Raymundo Sanabria MD LAB - HEMATOLOGY OR DERABLES [facility] [address] [place] [address] * (ABNORMAL) COMPREHENSIVE METABOLIC PANEL (04/09/2013 10:08 AM CDT) Only the most recent of2 resultswithin the time period is included. Glucose 115(H) 74 - 106 mg/dL 04/09/2013 10:40 AM [facility] Sodium 138 136 - 145 mmol/L 04/09/2013 10:40 AM [facility] Potassium 4.2 3.5 - 5.1 mmol/L 04/09/2013 10:40 AM [facility] Chloride 104 98 - 107 mmol/L 04/09/2013 10:40 AM [facility] CO2 26 22 - 31 mmol/L 04/09/2013 10:40 AM [facility] Calcium 8.5 8.5 - 10.1 mg/dL 04/09/2013 10:40 AM [facility] Anion Gap 8 5 - 15 mmol/L 04/09/2013 10:40 AM [facility] BUN 15 7 - 21 mg/dL 04/09/2013 10:40 AM [facility] Creatinine 0.72 0.50 - 1.30 mg/dL 04/09/2013 10:40 AM [facility] eGFR by MDRD >60 >60 ml/min/1.7 3m2 04/09/2013 10:40 AM [facility] eGFR by MDRD >60 >60 ml/min/1.7 3m2 04/09/2013 10:40 AM CDT [facility] Alkaline Phosphatase 83 38 - 126 U/L 04/09/2013 10:40 AM CDT [facility] ALT 90(H) 12 - 78 U/L 04/09/2013 10:40 AM CDT [facility] AST 47(H) 5 - 40 U/L 04/09/2013 10:40 AM T [facility] Protein Total 6.7 6.4 - 8.2 gm/dL 04/09/2013 10:40 AM CDT [facility] Albumin 3.7 3.4 - 5.0 gm/dL 04/09/2013 10:40 AM T [facility] Bilirubin Total 0.6 0.2 - 1.0 mg/dL 04/09/2013 10:40 AM CDT [facility] Blood specimen (specimen) BLOOD SPECIMEN / Unknown 04/09/2013 10:08 AM CDT 04/09/2013 10:15 AM CDT Raymundo Sanabria MD LAB - CHEMISTRY ORD ERABLES Performing Organization Address City/[facility] Co de Phone Number [facility] [address] [place] [address] * MAGNESIUM BLOOD (04/09/2013 10:08 AM CDT) Pathologist [facility] Magnesium 1.8 1.6 - 2.6 mg/dL 04/09/2013 10:37 AM CDT [facility] Blood specimen (specimen) BLOOD SPECIMEN / Unknown 04/09/2013 10:08 AM CDT 04/09/2013 10:15 AM CDT Raymundo Sanabria MD LAB - CHEMISTRY ORD ERABLES [facility] [address] [place] [address] * EKG 12-LEAD (04/09/2013 9:28 AM CDT) Ventricular Rate 69 BPM [facility] Atrial Rate 69 BPM [facility] P-R Interval 170 ms [facility] QRS Duration ms 106 ms [facility] Q-T Interval ms 410 ms [facility] QTC Calculation (Bezet) 439 ms [facility] Calculated P Treg[place] 66 degrees [facility] Calculated R [place] 55 degrees [facility] Calculated T Treg[place] 116 degrees [facility] Interpretation EKG Normal sinus rhythm Left ventricular hypertrophy with repolarization abnormality Nonspecific ST abnormality Abnormal ECG Confirmed by DORETHA CAMACHO MD ([id number]) on 04/11/2013 8:07:10 AM [facility] 04/09/2013 9:28 AM CDT 04/11/2013 8:07 AM CDT Narrative [facility] - 04/11/2013 8:08 AM CDT Procedure Note Document, Scanned - 04/11/2013 8:08 AM CDT Raymundo Sanabria MD ECG ORDERABLES [facility] Care Teams Mountain Or Glacier Guide Relationship Specialty Start Date End Date Rusty Tinoco MD [address] [place] [address] PCP - General Family Medicine 04/09/13
--- OUTSIDE RECORDS SUMMARY | 2024-12-05 13:38 | XMS_ITS | Clinical Summary ---
Author Organization [facility] [employer] Address [address] [place] [address] Care Team Providers Care Stockroom Worker Name Role Phone Rusty Tinoco MD Primary Care Provider [phone] Source Comments [facility] [employer],non-owned Affiliates and Associated Physician Practices is amultiple site organization consisting of ambulatory clinics and hospital sitesin [place], [place], [place] and [place]. This disclosure is being madepursuant to the Care Everywhere program and may not contain all information available regarding this patient. Last updated 18.[facility] [employer] Allergies No known active allergies Medications * [...] age to complete this topic Care Teams Stockroom Worker Relationship Specialty Start Date End Date Rusty Tinoco MD [address] [place] [address] PCP - General Family Medicine 04/09/13
--- OUTSIDE RECORDS SUMMARY | 2024-12-05 13:38 | XMS_ITS | Referral Summary ---
Author Organization [facility] [employer] Address [address] [place] [address] Care Team Providers Care Animal Ecologist Name Role Phone Rusty Tinoco MD Primary Care Provider [phone] Source Comments [facility] [employer],non-owned Affiliates and Associated Physician Practices is amultiple site organization consisting of ambulatory clinics and hospital sitesin [place], [place], [place] and [place]. This disclosure is being madepursuant to the Care Everywhere program and may not contain all information available regarding this patient. Last updated 18.[facility] [employer] Allergies No known active allergies Medications * [...] of Treatment Not on file Care Teams Animal Ecologist Relationship Specialty Start Date End Date Rusty Tinoco MD [address] [place] [address] PCP - General Family Medicine 04/09/13
[2024-12-05 14:06] LABS: Add Urine Microscopic? NO; Appearance Urine Clear (Clear); Bilirubin Urine Negative (Negative); Blood Urine Negative (Negative); Color Urine Yellow (Yellow); Glucose Urine UA Negative (Negative); Ketones Urine Negative (Negative); Leukocyte Esterase Ur Negative LEU/UL (Negative); Nitrate Urine Negative (Negative); Protein Urine Negative (Negative); Specific Grav Ur 1.045 (1.001-1.035); Urobilinogen Urine 0.2 mg/dL (<2.0); pH Urine 7.5 (5.0-9.0)
== END 2024-12-05 15:07 | disposition home or self-care (01) ==
PROVIDERS: Emergency Medicine; Emergency Provider Student in an Organized Health Care Education/Training Program; PCP Family Medicine
DX: K92.2 Gastrointestinal hemorrhage, unspecified (principal); I25.2 Old myocardial infarction; I25.10 Atherosclerotic heart disease of native coronary artery without angina pectoris; I42.2 Other hypertrophic cardiomyopathy; I10 Essential (primary) hypertension; E78.2 Mixed hyperlipidemia; G47.33 Obstructive sleep apnea (adult) (pediatric); M16.11 Unilateral primary osteoarthritis, right hip; F10.10 Alcohol abuse, uncomplicated; Z95.1 Presence of aortocoronary bypass graft; Z98.1 Arthrodesis status; Z87.891 Personal history of nicotine dependence; K76.0 Fatty (change of) liver, not elsewhere classified; I44.7 Left bundle-branch block, unspecified; R00.1 Bradycardia, unspecified
CPT/HCPCS: 36415; 74177; 80053; 81003; 83690; 85025; 85610; 85730; 86850; 86900; 86901; 93005; 96360; 99284; J7120; Q9967

== ENCOUNTER 2025-01-30 00:20 | Day surgery (SDC) | payer MEDICARE, SELFPAY ==
[2025-01-16 11:47] VITALS: BMI 33.5
--- OUTSIDE RECORDS SUMMARY | 2025-01-30 00:23 | XMS_ITS | Clinical Summary ---
Author Organization [facility] [address] Address [address] [place] [address] Care Team Providers Care Senior Gis Analyst Name Role Phone Rusty Tinoco MD Primary Care Provider [phone] Emily Alfred MD, Andres Henson Unavailable [phone] LeobardoDenisse jones MD Unavailable [phone] Allergies Active Allergy Reactions Criticality Noted Date Comments Amoxicillin Nausea only Low 03/01/2020 Medications cyanocobalamin (vitamin B-12) 500 mcg tablet take 1 by Oral route every day 0 10/05/19 12 Active citalopram (CeleXA) 40 mg tablet take 1 tablet by oral route every day 0 0 02/01/20 15 Active valACYclovir (VALTREX) 500 mg tablet Take 1 tablet (500 mg total) by mouth nightly 02/21/20 20 Active aspirin 81 mg chewable tabletIndications :Deep Vein Thrombosis Prevention Take 1 tablet (81 mg total) by mouth 2 (two) times a day 60 tablet 08/12/20 21 Active multivit-min/ferr ous fumarate (MULTI VITAMIN ORAL) Take by mouth Active ferrous gluconate 225 mg (27 mg iron) tablet 06/26/20 22 Active tamsulosin (FLOMAX) 0.4 mg extended release capsule 07/07/20 23 Active tadalafiL (CIALIS) 5 mg tablet Take 1 tablet (5 mg total) by mouth daily [facility] 10/02/19 25 Active cholecalciferol 25 mcg (1,000 unit) tablet Take 1 tablet (1,000 Units total) by mouth daily Active rosuvastatin (CRESTOR) 40 mg tabletIndications :Multiple-type hyperlipidemia TAKE 1 TABLET BY MOUTH DAILY 90 tablet 3 10/24/19 25 Active metoprolol XL (TOPROL-XL) 50 mg extended release tablet TAKE 1 TABLET BY MOUTH EVERY DAY. HOLD IF HEART RATE IS LESS THAN 60 90 tablet 2 01/30/20 25 Active metoprolol XL (TOPROL-XL) 50 mg extended release tablet TAKE 1 TABLET BY MOUTH DAILY HOLD FOR HEART RATE LESS THAN 60 90 tablet 3 12/13/19 24 025 Discontinued(R eorder) metoprolol XL (TOPROL-XL) 50 mg extended release tablet Take 1 tablet (50 mg total) by mouth daily TAKE ONE TABLET BY MOUTH DAILY, HOLD FOR HEART RATE LESS THAN 60 30 tablet 01/22/20 25 025 Discontinued Active Problems Problem Noted Date Diagnosed Date Gastrointestinal distress 10/04/2023 History of syncope 10/04/2023 Tobacco use 06/15/2021 Primary osteoarthritis of right hip 06/08/2021 Overview (06/08/2021): Added automatically from request for surgery [id number] Former smoker 09/17/2020 Coronary artery disease invo lving eklutna coronary artery of [place] heart without angina pectoris 09/16/2020 HOCM (hypertrophic obstructive cardiomyopathy) ( [facility]) 09/15/2020 Other male erectile dysfunction 09/15/2020 [...] 03/11/2020 020 Syncope and collapse 11/13/2018 024 Surgical History Surgery Date Site/Laterality Comments POSTERIOR [...] Laterality: right HOCM (hypertrophic obstructi ve cardiomyopathy) ([facility]) Syncope MR (mitral regurgitation) Pulmonary hypertension (HCC) CHF (congestive heart failure) (HCC) Myocardial infarction (HCC) 2010 Heart murmur Hyperlipidemia CAD (coronary artery disease) Hypertension Anxiety H/O ETOH abuse MARCIE (obstructive sleep apnea) Us es CPAP Alcohol abuse Family History Medical History Relation Name Comments Heart disease Brother Roberto Soto surgery, pig valve Heart disease Father Kevin atrial fib Hyperlipidemia Father Kevin Hyperlipidemi a; [...] on file 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 Gender Identity Male 05/25/2020 11:53 AM CDT Sexual Orientation Straight 05/25/2020 11 :53 AM CDT Obstetrics History Last Filed Vital Signs Vital Sign Reading Time Taken Comments Blood Pressure 132/70 10/05/2024 10:40 AM ESL INSTRUCTIONAL ASSISTANT Pulse 62 10/05/2024 10:40 AM ESL INSTRUCTIONAL ASSISTANT Temperature 36.6 C (97.9 F) 08/12/2021 9:10 AM ESL INSTRUCTIONAL ASSISTANT Respiratory Rate 18 08/12/2021 9:10 AM ESL INSTRUCTIONAL ASSISTANT Oxygen Saturation 96% 10/05/2024 10:40 AM ESL INSTRUCTIONAL ASSISTANT Inhaled Oxygen Concentration - - Weight 108.9 kg (240 lb) 10/05/2024 10:40 AM ESL INSTRUCTIONAL ASSISTANT Height 180.3 cm (5' 11 ) 10/05/2024 10:40 AM ESL INSTRUCTIONAL ASSISTANT Body Mass Index 33.47 10/05/2024 10:40 AM ESL INSTRUCTIONAL ASSISTANT Plan of Treatment Health Maintenance Due Date Last Done Comments Colon Cancer Screening-Colonoscopy 1960 Depression Screening 1960 Hepatitis C Screening 1960 Prostate Cancer Screening-PSA 1960 DTaP/Tdap/Td Vaccine (1 - Tdap) 02/04/1971 Hepatitis B Screening 02/04/1978 Regular Well Visit/Exam 18-64 02/04/1978 Lung Cancer Screening 02/04/2010 Covid-19 Vaccine ( season) 2024 06/18/2021, 05/28/2021, 12/20/2020, Additional history exists Influenza Vaccine (Season Ended) 2025 06/18/2021, 07/19/2018, 07/06/2017 Zoster Vaccine Completed 07/27/2021, 05/28/2021 Pneumococcal vaccine <65 Aged Out No longer eligible based on patient's age to complete this topic Medical Devices Implanted Type Area Trash Collector Device Identifier Shelf Expiration Date Model / Serial / Lot [employer] [id number] Cup 55mm Acetabular Bi Mentum Femoral Proximal Press Fit - Sn/A - [id number] Implanted:Qty: 1 on 08/11/2021 by Clinton Dumas MD at [facility] Other - see comments Right: Hip [employer] [id number] 05/26/2024 [id number] / N/A / [id number] [employer] [id number] Liner 55mm 28mm Acetabular Bi Mentum Femoral Proximal Polyethylene - Sn/A - [id number] Implanted:Qty: 1 on 08/11/2021 by Clinton Dumas MD at [facility] Other - see comments Right: Hip [employer] [id number] 07/26/2025 [id number] / N/A / [id number] [employer] [id number] Stem Fem 205mm Rev Corail Ti Marcial 135d 15 High Offset - Sn/A - [id number] Implanted:Qty: 1 on 08/11/2021 by Clinton Dumas MD at [facility] Other - see comments Right: Hip [employer] [id number] 01/23/2022 [id number] / N/A / [id number] [employer] [id number] Articul/Jose Guadalupe 28mm Cementless Hip +1.5mm 12/14 Taper Head Femoral Latex Free - Sn/A - [id number] Implanted:Qty: 1 on 08/11/2021 by Clinton Dumas MD at [facility] Other - see comments Right: Hip [employer] [id number] 02/23/2026 [id number] / N/A / [id number] Explanted Type Area Trash Collector Device Identifier Shelf Expiration Date Model / Serial / Lot Fermoral Nail Explanted:Qty: 1 on 08/11/2021 by Baldev Keating MD at [facility] Right: Hip Other Description:IMPLANT SENT TO [employer] TO BE AUTOCLAVED AND RETURNED TO PATIENT Insurance MEDICARE [facility] MEDICARE ADVANTAGE [place] [employer] [facility] UHC MEDICARE ADVANTAGE Advance Directives For more information, please contact: [phone] * Full Code (Latest Code Status on File) Date Activated Date Inactivated Comments 08/11/2021 5:40 PM 08/12/2021 4:10 PM * Full Code Date Activated Date Inactivated Comments 05/23/2020 7:38 PM 05/30/2020 3:20 PM * Full Code Date Activated Date Inactivated Comments 05/09/2020 4:41 PM 05/09/2020 10:31 PM Care Teams Senior Gis Analyst Relationship Specialty Start Date End Date Rusty Tinoco MD PCP - General 08/31/11 Andres Diaz Jr., MD Surgeon Cardiothoracic Surgery 05/30/20 Denisse Tovar MD Consulting Physician Cardiology 06/30/20
--- OUTSIDE RECORDS SUMMARY | 2025-01-30 00:23 | XMS_ITS | Encounter Summary ---
Author Organization [facility] Address [address] [place] [address] Care Team Providers Care Test Engineering Technician Name Role Phone Rusty Tinoco MD Primary Care Provider [phone] Emily Alfred MD, Andres Henson Unavailable [phone] Denisse Tovar MD Unavailable [phone] Encounter Details Date Type Department Care Team (Latest Contact Info) Description 03/01/2020 Ophth Exam Ophthalmology Rancho Lord MD [address] [facility] [place], [place] [id number] Social History Tobacco Use Types Packs/Day Years Used Date Smoking Tobacco: Former Smokeless Tobacco: Never Comments:Smoking History Pac ks/day: 1 Packs Alcohol Use Standard Drinks/Week Comments Yes 0 (1 standard drink = 0.6 oz pur e alcohol) Sex and Gender Information Value Date Recorded Sex Assigned at Not on file Legal 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
--- OUTSIDE RECORDS SUMMARY | 2025-01-30 00:23 | XMS_ITS | CONTINUITY OF CARE DOCUMENT ---
Author Name chris perez Address Unknown Organization [facility] Address [address] [place] [address] Phone [phone] Care Team Providers Care Fisher Swordfish Name Role Phone Torey Perdomo DO Unavailable GREG GARCIA, PARESH Razo Unavailable GREG GARCIA, PARESH Razo Unavailable [phone] PROBLEMS Condition Status Date Provider Notes Cardiovascular [...] In-person encounter Office Visit Torey Perdomo DO [facility] - In-person encounter Office Visit Torey [...] blood pressure, diastolic 80 mm[Hg] Feli [facility] blood pressure, systolic 150 mm[Hg] Keyana [facility] blood pressure, cuff size regular [facility] blood pressure, diastolic 80 mm[Hg] [facility] blood pressure, systolic 150 mm[Hg] Mark gil [place] pulse rate 73 /min [facility] oxygen saturation, oximetry 99 % [facility] respiratory rate E&M 19 /min [facility] weight E&M 145 [lb_av] [facility] height E&M 71 [in_i] [facility] Body Mass Index (Ratio) 21.20 kg/m2 [facility] Chace Perdomo blood pressure, diastolic 88 mm[Hg] Feli nkLog blood pressure, systolic 133 mm[Hg] Keyana kLog blood pressure, diastolic 88 mm[Hg] Katelynn reynoso [place] blood pressure, systolic 133 mm[Hg] Aidan helcarmen Radha oxygen saturation, oximetry 98 % Ifrah [place] pulse rate 85 /min Ifrah Radha respiratory rate E&M 20 /min Saige mullins Radha weight E&M 152 [lb_av] Ifrah Radha height E&M 71 [in_i] Ifrah [place] Body Mass Index (Ratio) 19.80 kg/m2 [facility] [place] [place] Chace Perdomo DO blood pressure, diastolic 115 [...] Chi Body Mass Index (Ratio) 23.43 kg/m2 [facility] [place] [place] Chace Perdomo DO blood pressure, diastolic 80 mm[Hg] Ma rsha O'John blood pressure, systolic 110 mm[Hg] Mar sha O'John oxygen saturation, oximetry 91 % Maryanne O'John respiratory rate E&M 16 /min Maryanne O'John pulse rate 68 /min Maryanne O'John weight E&M 168 [lb_av] Maryanne O'John height E&M 71 [in_i] Maryanne O'John Body Mass Index (Ratio) 24.27 kg/m2 [facility] [place] [place] Chace Perdomo DO blood pressure, diastolic 84 mm[Hg] Sisi Blackwell blood pressure, systolic 160 mm[Hg] Arleth Blackwell oxygen saturation, oximetry 98 % Lauren Blackwell respiratory rate E&M 18 /min Makenna Blackwell pulse rate 84 /min Lauren seth weight E&M 174 [lb_av] Lauren seth height E&M 71 [in_i] Lauren seth Body Mass Index (Ratio) 23.99 kg/m2 [facility] Chace Perdomo DO blood pressure, cuff size [...] Estab. 3 platelet count 211 X10E3/UL [facility] [phone]/07/1 3 red blood cell distribution width 13.0 [...] 3.5-5.2 3 sodium, serum 141 mmol/L [facility] 697-132 2033/07/1 3 urea nitrogen/creatinine ratio, serum 13 [employer] [...] High 6 cholesterol, serum 178 mg/dL [facility] 114-952 7724/04/1 6 calcium, serum 10.8 mg/dL [facility] 8.7-10.2 High 6 carbon dioxide, venous blood 23 mmol/L [facility] 20-29 6 chloride, serum 103 mmol/L [facility] 96-106 6 potassium, serum 5.1 mmol/L [facility] 3.5-5.2 6 sodium, serum 141 mmol/L [facility] 971-609 9307/04/1 6 urea nitrogen/creatinine ratio, serum 16 [facility] [...] Estab. 6 platelet count 267 X10E3/UL [facility] 159-166 5356/04/1 6 red blood cell distribution width 18.6 [...] tablet active 1 tablet once a day [facility] TYLENOL EXTRA STRENGTH 500 MG TABS active 2 tablet four times a day [facility] PRILOSEC OTC 20 MG ORAL TABLET DELAYED RELEASE completed one tab once daily - [facility] PLAVIX 75 MG ORAL TABLET completed Take one tab daily - [facility] ZANTAC 150 MAXIMUM STRENGTH TABLET completed take one tablet by mouth once daily - Maryanne O'John SENOKOT S TABLET completed take one tablet by mouth once daily - [facility] GABAPENTIN 300 MG ORAL CAPSULE completed take [...] ation, patient education and counseling yes Ifrah [place] number of years as a smoker 46 [...] green party ID [employer] CHOICE POS II [employer] insurance company [id number] ADVANCE DIRECTIVES Name Date DISCUSSED - NO DECISION MADE TREATMENT PLAN Date Name Performer [id number],C, C oronary ca score 31 (Cx) S tress test 12/19/18 negative for ischemia m ed rx r esume statin Torey Perdomo DO [id number],C, s tarted amlodipine 5 Torey Perdomo DO [id number],C, L DL 74 HDL 54 in 01/12 Cholesterol, Total [H] 222 mg/dL 100-199 Triglycerides 88 mg/dL 0-149 HDL Cholesterol 73 mg/dL >39 ! VLDL Cholesterol Ford 15 mg/dL 5-40 LDL Chol Calc ([facility]) [H] 134 mg/dL 0-99 r esumed atorva His updated medication list for this problem includes: Atorvastatin 40 Mg Tablet (Atorvastatin) ..... 1 every night Torey Perdomo DO [id number],C, l eft iliac stented 03/14 a bi post suggests project inspector stenosis right in 19 c onfirmed iliac occlusion aif A IF 05/05/21 occluded right common iliac artery, stented, c/b thrombotic occlusion of left maribeth s/p thrombectomy, covered stent placement proximal sfa s top plavix c urrently on eliquis will change to low dose xarelto with aspirin Torey Perdomo [id number],C, l eft iliac stented 03/14 a bi post suggests project inspector stenosis right in 19 c onfirmed iliac occlusion aif A IF 05/05/21 occluded right common iliac artery, stented, c/b thrombotic occlusion of left maribeth s/p thrombectomy, covered stent placement proximal sfa s top plavix after a month. c urrently on eliquis will change to low dose xarelto with aspirin in a month. Torey Perdomo DO [id number],C,s tart amlodipine 5 Torey Perdomo DO [id number],C, s top nsaids u se tylenol Torey Perdomo [id number],C, l eft iliac stented 03/14 a bi post suggests project inspector stenosis right in c onfirmed iliac occlusion aif s tented/fixed 05/16 s top plavix after a month. c urrently on eliquis will change to low dose xarelto with aspirin in a month. Torey Perdomo [id number],C, L DL 74 HDL 54 in 01/12 Cholesterol, Total [H] 222 mg/dL 100-199 Triglycerides 88 mg/dL 0-149 HDL Cholesterol 73 mg/dL >39 ! VLDL Cholesterol Ford 15 mg/dL 5-40 LDL Chol Calc ([facility]) [H] 134 mg/dL 0-99 r esumed atorva His updated medication list for this problem includes: Atorvastatin 40 Mg Tablet (Atorvastatin) ..... 1 every night Torey Perdomo [id number],C, C oronary ca score 31 (Cx) S tress test 12/19/18 negative for ischemia m ed rx r esume statin Torey Perdomo [id number],C, l eft iliac stented 03/14 zelda post suggests project inspector stenosis right in 19 m ore claudication, no wounds or ulcers. has pain and a palpable 'lump' right groin will u/s first then plan angio Torey Perdomo [id number],C,n eeds to check at home and monitor. Torey Perdomo [id number],C,a bi n eeds aif Torey Pedromo [id number],C, L DL 74 HDL 54 in 01/12 resume atorva Torey Perdomo [id number],C,C oronary ca score 31 (Cx) S tress test 12/19/18 negative for ischemia m ed rx o ff plavix currently r esume statin Torey Perdomo DO [id number],C, l eft iliac stented 03/14 d apt a bi post suggests project inspector stenosis right in 19 h as pain [...] Ford 15 mg/dL 5-40 LDL Chol Calc ([facility]) [H] 134 mg/dL 0-99 r esumed atorva His updated medication list for this problem includes: Atorvastatin 40 Mg Tablet (Atorvastatin) ..... 1 every night Torey Perdomo DO Cardiology: l eft iliac stented 03/14 a bi post suggests project inspector stenosis right in 19 c onfirmed iliac occlusion aif A IF 05/05/21 occluded right common iliac artery, stented, c/b thrombotic occlusion of left maribeth s/p thrombectomy, covered stent placement proximal sfa s top plavix c urrently on eliquis will change to low dose xarelto with aspirin Torey Perdomo DO Cardiology need fin: l eft iliac stented 03/14 a bi post suggests project inspector stenosis right in 19 c onfirmed iliac occlusion aif A IF 05/05/21 occluded right common iliac artery, stented, c/b thrombotic occlusion of left maribeth s/p thrombectomy, covered stent placement proximal sfa s top plavix after a month. c urrently on eliquis will change to low dose xarelto with aspirin in a month. Toreyjavier Perdomo DO Cardiology need fin: start amlodipine 5 Torey Perdomo DO Cardiology need fin: s top nsaids u se tylenol Torey Perdomo DO Cardiology need fin: l eft iliac stented 03/14 a bi post suggests project inspector stenosis right in 19 c onfirmed iliac [...] Ford 15 mg/dL 5-40 LDL Chol Calc ([facility]) [H] 134 mg/dL 0-99 r esumed atorva His updated medication list for this problem includes: Atorvastatin 40 Mg Tablet (Atorvastatin) ..... 1 every night Torey Perdomo DO Cardiology need fin: C oronary ca score 31 (Cx) S tress test 12/19/18 negative for ischemia m ed rx r esume statin Torey Perdomo DO Cardiology: l eft iliac stented 03/14 zelda post suggests project inspector stenosis right in 19 m ore claudication, no wounds or ulcers. has pain and a palpable 'lump' right groin will u/s first then plan angio Torey Chace Perdomo DO Cardiology:needs to check at [facility] e and monitor. Torey Chace Perdomo DO [...] 03/14 d apt a bi post suggests project inspector stenosis right in 19 h as pain [...] completed FVC / MVV with bronchodilator - 03499 Torey Perdomo DO completed BLOOD COUNT HEMOGLOBIN Toreygenaro Perdomo DO completed FRC - 43242 Torey Perdomo DO completed SpO2 w/o 6min walk/titration Torey Perdomo DO completed DLCO - 02040 Torey Perdomo DO completed EKG Toreygenaro Perdomo DO completed Stress EKG Dm Olmstead MD completed Cardiolite, 2 units Brandon Avendaño MD completed SPECT Images Brandon Avendaño MD compl eted CT- Coronary CA score Torey Perdomo DO completed EKG Torey Perdomo DO completed
--- OUTSIDE RECORDS SUMMARY | 2025-01-30 00:23 | XMS_ITS | Clinical Summary ---
Author Organization [facility] Address [address] [place] [address] Care Team Providers Care Product Development Coordinator Name Role Phone Rusty Tinoco MD Primary Care Provider [phone] Source Comments [facility],non-owned Affiliates and Associated Physician Practices is amultiple site organization consisting of ambulatory clinics and hospital sitesin [place], [place], [place] and [place]. This disclosure is being madepursuant to the Care Everywhere program and may not contain all information available regarding this patient. Last updated 18.[facility] Allergies No known active allergies Medications * Be aware that medications may not be up to date on this document. Alwaysverify current medications with the patient. 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
--- OUTSIDE RECORDS SUMMARY | 2025-01-30 00:23 | XMS_ITS | Referral Summary ---
Author Organization [facility] [address] Address [address] [place] [address] Care Team Providers Care Night Auditor Name Role Phone Rusty Tinoco MD Primary Care Provider [phone] Emily Alfred MD, Andres Henson Unavailable [phone] LeobardoDenisse jones MD Unavailable [phone] Allergies Active Allergy Reactions Criticality Noted Date [...] tablet (5 mg total) by mouth daily [facility] 10/02/19 25 Active cholecalciferol 25 [...] (06/08/2021): Added automatically from request for surgery [id number] Former smoker 09/17/2020 Coronary artery disease invo lving [place] coronary artery of [place] heart without angina pectoris 09/16/2020 HOCM (hypertrophic obstructive cardiomyopathy) ( [facility]) 09/15/2020 Other male erectile dysfunction [...] on file 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 [employer] Gender Identity Male 05/25/2020 11:53 AM CDT Sexual Orientation Straight 05/25/2020 11 :53 AM CDT Last Filed Vital Signs Vital Sign Reading Time Taken Comments Blood Pressure 132/70 10/05/2024 10:40 AM LPN [employer] Pulse 62 10/05/2024 10:40 AM LPN [employer] Temperature 36.6 C (97.9 F) 08/12/2021 9:10 AM LPN [employer] Respiratory Rate 18 08/12/2021 9:10 AM LPN [employer] Oxygen Saturation 96% 10/05/2024 10:40 AM LPN [employer] Inhaled Oxygen Concentration - - Weight 108.9 kg (240 lb) 10/05/2024 10:40 AM LPN [employer] Height 180.3 cm (5' 11 ) 10/05/2024 10:40 AM LPN [employer] Body Mass Index 33.47 10/05/2024 10:40 AM LPN [employer] Plan of Treatment Not on file Medical Devices Implanted Type Area Bench Chemist Device Identifier Shelf Expiration Date Model / Serial / Lot [employer] [id number] Cup 55mm Acetabular Bi Mentum Femoral Proximal Press Fit - Sn/A - [id number] Implanted:Qty: 1 on 08/11/2021 by Clinton Dumas MD at [facility] Other - see comments Right: Hip [employer] [id number] 05/26/2024 [id number] / N/A / [id number] [employer] [id number] Liner 55mm 28mm Acetabular Bi Mentum Femoral Proximal Polyethylene - Sn/A - [id number] Implanted:Qty: 1 on 08/11/2021 by Clinton Dumas MD at [facility] Other - see comments Right: Hip [employer] [id number] 07/26/2025 [id number] / N/A / [id number] [employer] [id number] Stem Fem 205mm Rev Corail Ti Marcial 135d 15 High Offset - Sn/A - [id number] Implanted:Qty: 1 on 08/11/2021 by Clinton Dumas MD at [facility] Other - see comments Right: Hip [employer] [id number] 01/23/2022 [id number] / N/A / [id number] [employer] [id number] Articul/Jose Guadalupe 28mm Cementless Hip +1.5mm 12/14 Taper Head Femoral Latex Free - Sn/A - [id number] Implanted:Qty: 1 on 08/11/2021 by Clinton Dumas MD at [facility] Other - see comments Right: Hip [employer] [id number] 02/23/2026 [id number] / N/A / [id number] Explanted Type Area Bench Chemist Device Identifier Shelf Expiration Date Model / Serial / Lot Fermoral Nail Explanted:Qty: 1 on 08/11/2021 by Baldev Keating MD at [facility] Right: Hip Other Description:IMPLANT SENT TO [employer] TO BE AUTOCLAVED AND RETURNED TO PATIENT Insurance MEDICARE [facility] MEDICARE ADVANTAGE [facility] UHC MEDICARE ADVANTAGE Advance Directives For more information, please contact: [phone] * Full Code (Latest Code Status on File) Date Activated Date Inactivated Comments 08/11/2021 5:40 PM 08/12/2021 4:10 PM * Full Code Date Activated Date Inactivated Comments 05/23/2020 7:38 PM 05/30/2020 3:20 PM * Full Code Date Activated Date Inactivated Comments 05/09/2020 4:41 PM 05/09/2020 10:31 PM Care Teams Night Auditor Relationship Specialty Start Date End Date Rusty Tinoco MD PCP - General 08/31/11 Andres Diaz Jr., MD Surgeon Cardiothoracic Surgery 05/30/20 Denisse Tovar MD Consulting Physician Cardiology 06/30/20
[2025-01-30 10:38] VITALS: BP 131/83; PULSE 62; RESP 16; TEMP 36.6; O2SAT 96; BMI 32.6
[2025-01-30] MEDS: LACTATED RINGERS 1,000 ML 150 ML IV CONT (10:50)
--- NOTE | 2025-01-30 11:07 | PM.HPGS ---
History of Present Illness History of Present Illness Consent: Risks, benefits, and alternatives have been discussed and questions answered. Patient agrees to proceed with procedure. Chief complaint: Upper abdominal pain, unspecified Narrative: Charles Rose is a 64 year old male here for first egd, had intermittent upper abdominal pain. Review of Systems Review of Systems: All systems reviewed & are unremarkable except as noted in HPI and below PMFSH Past Medical History Medical History (Updated 12/25/24 @ 15:00 by Claudia Hawkins, MARTIN-Vic) Hemorrhoids Diverticulosis BRBPR (bright red blood per rectum) Upper abdominal pain Black stools Alcohol use disorder Low volume of ejaculated semen Otitis externa MARCIE on CPAP Hx of myocardial infarction Hypertension Hip replacement planned BMI 30.0-30.9,adult Hypokalemia Bone spur (~2001) Hypertrophic cardiomyopathy Primary osteoarthritis of right hip Anxiety disorder, unspecified Chronic bilateral low back pain without sciatica Essential (primary) hypertension Mixed hyperlipidemia Surgical History Surgical History Hx of elbow surgery Christian Bedolla- 2016 S/P triple vessel bypass History of lumbar fusion (~2017) History of shoulder surgery (~2014) History of hernia repair (~2013) Family History Family History Father Mother No problems noted. Sibling Heart disease Other Family history of cardiovascular disease Social History Social History Smoking packs per day: 1 Smoking cigarettes per day: 20.0 Years smoked: 50 Smoking pack-years: 50.00 Smoking status: Former smoker Tobacco type: cigarettes Second hand tobacco smoke exposure: No Alcohol intake: current Drinks per week: 70 Alcohol use details: Drinks everyday about 10 beers a day Substance use: current Substance use type: marijuana Other substance usage details: Medical marijuana for back and hip pain. Uses daily about 4pm. 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 Gender identity (if verbalized by the patient): Male Spiritual care concerns: No Meds Home Medications and Allergies Home Medications ?Medication ?Instructions ?Recorded ?Confirmed ?Type aspirin 81 mg tablet,delayed 81 mg PO DAILY 03/01/20 01/30/25 History release (Adult Low Dose Aspirin) metoprolol succinate 50 mg 50 mg PO DAILY 06/03/20 01/30/25 History tablet,extended release 24 hr cyanocobalamin (vitamin B-12) 500 500 mcg PO DAILY 11/12/20 01/30/25 History mcg lozenges ferrous sulfate 324 mg (65 mg 324 mg PO HS 02/02/22 01/30/25 History iron) tablet,delayed release pxycqcku-jyu-wvsek acid 0.4 1 tablet PO DAILY 01/05/23 01/30/25 History mg-lycopene 300 mcg-lutein 250 mcg tablet (Centrum Silver) buspirone 7.5 mg tablet 7.5 mg PO BID PRN anxiety #180 tabs 01/09/24 12/25/24 Rx rosuvastatin 40 mg tablet (Crestor) 40 mg PO DAILY 01/09/24 01/30/25 History fexofenadine 60 mg tablet (Chuyita 60 mg PO Q12H PRN alergies 05/24/24 01/30/25 History Allergy) tadalafil 5 mg tablet (Cialis) 5 mg PO DAILY #30 tabs 11/07/24 01/16/25 Rx citalopram 40 mg tablet 40 mg PO DAILY #90 tabs 11/27/24 01/30/25 Rx valacyclovir 500 mg tablet See Rx Instructions .Route 11/27/24 01/16/25 Rx .COMPLEX #90 tabs tamsulosin 0.4 mg capsule See Rx Instructions .Route 11/28/24 01/30/25 Rx .COMPLEX #90 caps Allergies Allergy/AdvReac Type Severity Reaction Status Date / Time lactose Allergy Mild Diarrhea Verified 01/30/25 10:37 amoxicillin AdvReac Mild Nausea Verified 01/30/25 10:37 Vital Signs Vital Signs - 24 hr 01/30/25 10:38 Temperature 97.9 F Pulse Rate 62 Respiratory Rate 16 Blood Pressure 131/83 Pulse Oximetry 96 Oxygen Delivery Room Air Exam Const: General: comfortable and no acute distress HENMT: Face/Nose/Sinus: Normal nares present Eyes: General: appearance normal, both eyes and all related structures Neck: Neck: no JVD Resp: Auscultation: clear to auscultation bilaterally Cardio: Rate: regular rate Rhythm: regular rhythm GI: Inspection: non-distended GI Palp: Yes Soft to palpation Skin: General skin exam: normal color Neuro: Speech: normal speech Extrem: General: normal to inspection Psych: Mental Status: mental status grossly normal Assessment and Plan Assessment and plan (1) Upper abdominal pain: Code(s): R10.10 - Upper abdominal pain, unspecified Status: Acute Assessment and Plan: egd with bx
--- NOTE | 2025-01-30 11:28 | P.PNAN_ITS ---
Anes - Initial Pre Proc Eval Procedure: Operation Date: 01/30/25 11:45 Proposed Procedures p Esophagogastroduodenoscopy - Lamont Mcginnis MD Date/Time: 01/30/25 11:28 Surgeon: Lamont Mcginnis MD Pre Op Diagnosis: Upper abdominal pain, unspecified Patient Data Age: 64 Gender: M Height: 1.8 m Weight: 106.3 kg Last Vital Signs Temp 97.9 F 01/30/25 10:38 Pulse 62 01/30/25 10:38 Resp 16 01/30/25 10:38 BP 131/83 01/30/25 10:38 Pulse Ox 96 01/30/25 10:38 O2 Del Method Room Air 01/30/25 10:38 Allergies Allergy/AdvReac Type Severity Reaction Status Date / Time lactose Allergy Mild Diarrhea Verified 01/30/25 10:37 amoxicillin AdvReac Mild Nausea Verified 01/30/25 10:37 Home Medications ?Medication ?Instructions ?Recorded ?Confirmed ?Type aspirin 81 mg tablet,delayed 81 mg PO DAILY 03/01/20 01/30/25 History release (Adult Low Dose Aspirin) metoprolol succinate 50 mg 50 mg PO DAILY 06/03/20 01/30/25 History tablet,extended release 24 hr cyanocobalamin (vitamin B-12) 500 500 mcg PO DAILY 11/12/20 01/30/25 History mcg lozenges ferrous sulfate 324 mg (65 mg 324 mg PO HS 02/02/22 01/30/25 History iron) tablet,delayed release uchurbvn-awp-upqer acid 0.4 1 tablet PO DAILY 01/05/23 01/30/25 History mg-lycopene 300 mcg-lutein 250 mcg tablet (Centrum Silver) buspirone 7.5 mg tablet 7.5 mg PO BID PRN anxiety #180 tabs 01/09/24 12/25/24 Rx rosuvastatin 40 mg tablet (Crestor) 40 mg PO DAILY 01/09/24 01/30/25 History fexofenadine 60 mg tablet ([place]ita 60 mg PO Q12H PRN alergies 05/24/24 01/30/25 History Allergy) tadalafil 5 mg tablet (Cialis) 5 mg PO DAILY #30 tabs 11/07/24 01/16/25 Rx citalopram 40 mg tablet 40 mg PO DAILY #90 tabs 11/27/24 01/30/25 Rx valacyclovir 500 mg tablet See Rx Instructions .Route 11/27/24 01/16/25 Rx .COMPLEX #90 tabs tamsulosin 0.4 mg capsule See Rx Instructions .Route 11/28/24 01/30/25 Rx .COMPLEX #90 caps Patient hx anesthesia problems: none Family hx anesthesia problems: none Results Review: All pre-operative results and documents have been reviewed as part of the pre-operative evaluation. [facility] Past Medical History Medical History (Updated 12/25/24 @ 15:00 by CRISTA Camejo) Hemorrhoids Diverticulosis BRBPR (bright red blood per rectum) Upper abdominal pain Black stools Alcohol use disorder Low volume of ejaculated semen Otitis externa MARCIE on CPAP Hx of myocardial infarction Hypertension Hip replacement planned BMI 30.0-30.9,adult Hypokalemia Bone spur (~2001) Hypertrophic cardiomyopathy Primary osteoarthritis of right hip Anxiety disorder, unspecified Chronic bilateral low back pain without sciatica Essential (primary) hypertension Mixed hyperlipidemia Surgical History Surgical History Hx of elbow surgery [facility]- 2016 S/P triple vessel bypass History of lumbar fusion (~2017) History of shoulder surgery (~2014) History of hernia repair (~2013) Family History Family History Father Mother No problems noted. Sibling Heart disease Other Family history of cardiovascular disease Social History Social History Smoking packs per day: 1 Smoking cigarettes per day: 20.0 Years smoked: 50 Smoking pack-years: 50.00 Smoking status: Former smoker Tobacco type: cigarettes Second hand tobacco smoke exposure: No Alcohol intake: current Drinks per week: 70 Alcohol use details: Drinks everyday about 10 beers a day Substance use: current Substance use type: marijuana Other substance usage details: Medical marijuana for back and hip pain. Uses daily about 4pm. 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 Informed Consent: The patient's anesthetic plan and its attendant risks and benefits were discussed with the patient/family/POA. Questions were solicited and answers provided to the satisfaction of the patient/family/POA.
[2025-01-30 11:40] VITALS: BP 136/65; PULSE 60; RESP 23; O2SAT 95
[2025-01-30 11:50] VITALS: BP 124/60; PULSE 60; RESP 21; O2SAT 96
[2025-01-30 12:00] VITALS: BP 124/54; PULSE 60; RESP 19; O2SAT 97
== END 2025-01-30 12:15 | disposition home or self-care (01) ==
PROVIDERS: PCP Family Medicine; Visit Provider Internal Medicine Gastroenterology
PROC: 0DJ08ZZ Inspection of Upper Intestinal Tract, Via Natural or Artificial Opening Endoscopic (ICD-10-PCS; CPT 43239; principal; 2025-01-30 11:45)
DX: K31.89 Other diseases of stomach and duodenum (principal); K29.70 Gastritis, unspecified, without bleeding; I10 Essential (primary) hypertension; E87.6 Hypokalemia; E78.2 Mixed hyperlipidemia; G47.33 Obstructive sleep apnea (adult) (pediatric); I25.2 Old myocardial infarction; M16.11 Unilateral primary osteoarthritis, right hip; F41.9 Anxiety disorder, unspecified; G89.29 Other chronic pain; M54.50 Low back pain, unspecified; F12.90 Cannabis use, unspecified, uncomplicated; E66.9 Obesity, unspecified; Z68.32 Body mass index [BMI] 32.0-32.9, adult; Z79.82 Long term (current) use of aspirin; Z99.89 Dependence on other enabling machines and devices; Z98.890 Other specified postprocedural states; Z95.1 Presence of aortocoronary bypass graft; Z98.1 Arthrodesis status; Z87.891 Personal history of nicotine dependence; Z87.19 Personal history of other diseases of the digestive system; Z82.49 Family history of ischemic heart disease and other diseases of the circulatory system
CPT/HCPCS: 43239; 88305; J2003; J2704; J7120

== ENCOUNTER 2025-05-22 14:46 | Outpatient (CLI) | payer MEDICARE, SELFPAY ==
--- NOTE | ~2025-05-22 | XR_ITS ---
EXAMINATION: XR shoulder RT min 2V, 05/22/2025 15:10 CDT HISTORY: LATERAL RT SHOULDER PAIN x1 MONTH COMPARISON: No comparisons available. Findings: No acute fracture or malalignment. No significant degenerative changes. Soft tissues unremarkable. Impression: No acute fracture or malalignment. Reviewed, dictated and finalized at location A. Impression: No acute fracture or malalignment.
== END 2025-05-22 14:47 | disposition home or self-care (01) ==
LOC: MICIMG 14:47
PROVIDERS: PCP Family Medicine; Visit Provider Nurse Practitioner Family
DX: M25.511 Pain in right shoulder (principal)
CPT/HCPCS: 73030